=== PATIENT | female | born 1960 | race Caucasian/White ===

== ENCOUNTER 2018-09-09 13:40 | Inpatient (IN) | payer SELFPAY ==
[2018-09-09 14:18] LABS: #Basophils 0.1 thou/uL (0.0-0.2); #Eosinphils 0.2 thou/uL (0.0-0.7); #Monocytes 0.7 thou/uL (0.11-0.59); #Neutrophils 5.7 thou/uL (1.40-6.50); %Basophils 1.2 % (0.0-1.0); %Eosinophils 1.8 % (0.0-10.0); %Monocytes 7.4 % (0.0-10.0); %Neutrophils 58.6 % (42.0-75.0); Hemoglobin 14.8 g/dL (12.0-16.0); Mean Corpuscular HGB CONC 32.6 g/dL (32.0-36.0); Mean Corpuscular Hemoglobin 30.9 pg (27.0-31.0); Mean Corpuscular Volume 94.8 fL (78.0-98.0); Mean Platelet Volume 6.9 fL (7.4-10.4); Platelet Count 297 thou/uL (130-400); RBC Distribution Width 11.5 % (11.5-14.5); White Blood Cell (WBC) Count 9.6 thou/uL (4.8-10.8)
[2018-09-09 14:39] LABS: ALT (SGPT) 7 U/L (8-55); AST (SGOT) 8 U/L (5-34); Albumin 4.1 g/dL (3.5-5.0); Alkaline Phosphatase 155 U/L (40-150); Anion Gap 12 mmol/L (10-20); BUN (Urea Nitrogen) 15 mg/dL (9.8-20.1); Bilirubin, Total 0.3 mg/dL (0.2-1.2); CK (CPK) 49 U/L (29-168); Calc. Creatinine Clearance 0 mL/min (70-130); Calcium 9.5 mg/dL (7.8-10.44); Carbon Dioxide 28 mmol/L (22-29); Chloride 101 mmol/L (98-107); Estimated GFR-MDRD 59; Globulin 3.3 g/dL (2.4-3.5); Glucose 392 mg/dL (70-105); Potassium 4.5 mmol/L (3.5-5.1); Protein, Total 7.4 g/dL (6.0-8.3); Sodium 136 mmol/L (136-145)
[2018-09-09] MEDS ORDERED: Aspirin 81 mg Enteric Coated Tablet ONE (14:54)
[2018-09-09] MEDS ORDERED: Aspirin Chewable 81 MG TAB ONE (14:56)
--- NOTE | 2018-09-09 15:41 | RAD ---
PORTABLE CHEST 1 VIEW: DATE: 09/09/2018. TIME: 2:55 p.m. HISTORY: Left arm weakness, high blood pressure. FINDINGS: The heart size is normal. The aorta is tortuous. The lungs are expanded without lobar consolidation , pneumothoraces, or pleural effusions. There are degenerative changes in the spine. IMPRESSION: No radiographic evidence of acute cardiopulmonary process. POS: TPC
--- NOTE | 2018-09-09 15:52 | CT ---
CT BRAIN WITHOUT CONTRAST: HISTORY: Left arm numbness and tingling. FINDINGS: There are old infarctions in the right frontal and parietal lobes. Old small infarctions in the righ t frontal and parietal lobes. No evidence of acute infarct, hemorrhage, midline shift, or abnormal e xtraaxial fluid collections is seen. The ventricular size is appropriate and the basilar cisterns pa tent. The bony calvarium is intact. The visualized paranasal sinuses and mastoid air cells are well aerated. IMPRESSION: No CT evidence of acute intracranial process. POS: TPC
[2018-09-09] MEDS ORDERED: Insulin Regular 300 UNITS/3 ML VIAL ONE (17:21)
[2018-09-09] MEDS ORDERED: Ondansetron PF 4 MG/2 ML Vial IVP PRN (18:17)
[2018-09-09] MEDS ORDERED: Ondansetron ODT 4 MG TAB SL PRN (18:17)
[2018-09-09 18:28] VITALS: BMI 22.6
[2018-09-10] MEDS ORDERED: Dextrose 5% in Water 1,000 ML IV PRN (00:20)
[2018-09-10] MEDS ORDERED: Dextrose 50% Abboject 50 ML SYRINGE SLOW IVP PRN (00:20)
[2018-09-10] MEDS: HumaLOG 300 UNITS/3 ML VIAL SC PRN ×5 (00:59→20:26)
[2018-09-10 04:41] LABS: Hemoglobin A1c 13.8 % (4.0-6.0)
[2018-09-10 04:59] LABS: Cardiac Risk 5.1 (Less than 4.5)
--- NOTE | 2018-09-10 05:14 | HP ---
TIME OF EVALUATION: 6:30 p.m. CHIEF COMPLAINT: Left upper extremity weakness. HISTORY OF PRESENT ILLNESS: Ms. Fitch is a pleasant 57-year-old female with past medical history significant for diabetes, which has gone untreated since December of 2017, and current tobacco abuse with a one pack per day habit, who presented to the emergency department with complaints of left upper extremity weakness which began about 3 days ago. The patient has noted that the symptoms seemed to be worsening over the past 2 days. She can no longer grasp anything with her left hand. She does say that her daughter at one point might have noticed some slurred speech. She has had no expressive aphasia. Daughter stated that she might have noticed a mild left facial droop. The patient eventually decided to seek medical treatment for these symptoms. In the emergency department, a brain CT was performed, which showed old infarctions in the right frontal and parietal lobes, no evidence of acute infarct, hemorrhage, or midline shift. Her chest x-ray was negative. Her NIH Stroke Scale in the ED was 4, for some limb ataxia of the left hand, mild sensory loss, and mild dysarthria. Her EKG showed normal sinus rhythm. Her labs were largely unremarkable aside from a glucose of 392 and an alkaline phosphatase of 155. She will be admitted to the Hospitalist Service for further imaging and workup. REVIEW OF SYSTEMS: A 12-point review of systems performed and is negative except that stated above. The patient has had no nausea, vomiting, fever, or chills. She has had no chest pain or shortness of breath. No change in her stool. No dysuria. PAST MEDICAL HISTORY: Type 2 diabetes mellitus, tobacco abuse. PAST SURGICAL HISTORY: Hysterectomy, x2, abscess removal. SOCIAL HISTORY: The patient is currently smoking one pack per day. She does drink alcohol on occasion. No illicit drug use. She lives in [place], and her daughters are close by. She moved from [place] in December of 2017 and has had no medical followup or care since that time. FAMILY HISTORY: Significant for diabetes. ALLERGIES: NO KNOWN DRUG ALLERGIES. HOME MEDICATIONS: None. PHYSICAL EXAMINATION: VITAL SIGNS: Blood pressure 128/69, pulse is 88, respirations are 16, O2 saturation is 93% on room air, temperature 98.7. GENERAL: The patient is a small-statured thin female, resting in bed, in no acute distress. HEENT: Head is atraumatic and normocephalic. Mucous membranes are moist. NECK: Trachea is midline. No carotid bruits. CV: S1 and S2. Regular rate and rhythm. No appreciable murmurs, rubs, or gallops. LUNGS: Regular respiratory rate and pattern, mildly decreased vesicular breath sounds throughout. ABDOMEN: Positive bowel sounds. Soft, nontender. EXTREMITIES: No edema. Both lower extremities are warm and well perfused. SKIN: Warm and dry. NEUROLOGIC: Cranial nerves 2 through 12 seemed to be grossly intact aside from a very slight left down turn of the mouth. Her neurologic exam reveals sensory and motor loss, inability to grasp with the left hand, although she has no left arm drift. Both lower extremities show +5/5 strength. LABORATORY DATA: White blood cell count 9.6, hemoglobin 14.8, hematocrit 45.5, platelets are 297. Sodium 136, potassium 4.5, carbon dioxide 28, BUN 15, creatinine 0.96. Troponin negative. ASSESSMENT: 1. Left upper extremity weakness, with inability to grasp with the left hand, onset several days ago, likely secondary to subacute CVA. 2. Uncontrolled/untreated diabetes mellitus type 2. 3. Tobacco abuse, current one pack per day habit. 4. 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 PLAN: The patient did receive aspirin in the ER, we will continue this daily. We will add statin. The patient will have an MRI of the brain along with CT angio of the head and neck. We will also order an echocardiogram. Given the patient's symptoms and risk factors, we will go ahead and consult Neurology for this case. We will use sliding scale insulin to control blood sugar. I will obtain an A1c and a fasting lipid panel in the morning. We will also consult PT and OT. Further recommendations based on findings of testing. We will also add lisinopril. Job ID: [id number]
[2018-09-10] MEDS ORDERED: Aspirin 325 MG TAB PO SCH (09:00)
[2018-09-10] MEDS: Aspirin 81 mg Enteric Coated Tablet PO SCH (09:56)
[2018-09-10] MEDS: Lisinopril 2.5 MG TAB PO SCH (09:56)
[2018-09-10] MEDS: Acetaminophen 325 MG TAB PO PRN ×2 (09:57→23:03)
--- NOTE | 2018-09-10 11:32 | CT ---
CT angiogram of head and neck performed with and without contrast enhancement with 3-D reconstruction s HISTORY: Left arm numbness x4 days COMPARISON: CT of the brain performed yesterday. FINDINGS: CT angiography of neck: The thyroid gland is normal in appearance. The vocal cord region ap pears unremarkable no significant jugular chain adenopathy. The parotid and submandibular gland show no evidence of mass. There are small submandibular nodes which are nonspecific. Parapharyngeal s paces appear clear. Angiographic portion of this study yielded a good examination. There is an aberrant right subclavian artery incidentally noted which passes beneath the esophagus this is an incidental finding. The left common carotid artery has a separate origin from the aortic arch. No signs of any subclavian drew nosis. The right vertebral artery is small with a dominant left vertebral. The right common carotid internal and external carotid arteries are normal in caliber no evidence of any significant stenosis by nascent criteria. The left common carotid internal and external carotid arteries are also normal in appearance without significant stenosis. CT angiogram of brain performed with and without contrast: Some areas of decreased attenuation in the right frontal and parietal regions are again noted these could be subacute to older in nature. MRI may be helpful in assessment of this. The angiographic portion of this exam yielded a good study. The basilar artery is normal in appearanc e. Posterior cerebral arteries appear unremarkable. The cavernous portion of the both internal carotid arteries are normal in appearance. Directly superi or to the cavernous portion of both internal carotid arteries are narrowed with moderate narrowing on the left and mild narrowing on the right. The A1 segment of the right anterior cerebral artery is small, this appears to be more developmental. The anterior middle cerebral arteries are otherwise unremarkable in appearance. No evidence of any areas of significant narrowing or signs of intralumina l thrombus. No additional findings. IMPRESSION: 1. No evidence of any significant stenosis of either the right or left internal carotid arteries by n ascent criteria. 2. Narrowing of both internal carotid arteries just above the cavernous portions with mild narrowing on the right and mild to moderate narrowing of the left. No intraluminal thrombus or other findings. 3. Dominant left vertebral. 4. Aberrant right subclavian. 5. Further evaluation with MRI may be beneficial.
--- NOTE | 2018-09-10 12:18 | MRI ---
EXAM: MRI of the brain without contrast HISTORY: Left-sided weakness; stroke COMPARISON: CT brain 09/09/2018 TECHNIQUE: Multiplanar multisequence MR images were obtained of the brain without IV contrast. FINDINGS: The 2 hypodense regions seen on CT demonstrate high FLAIR signal and restricted diffusion consistent with acute infarctions. The largest area measures 1.9 cm in size. Other smaller tiny white matter areas of restricted diffusion are secondary to other small infarctions. No hydronephrosis. No extra-axial fluid collection or intracranial hemorrhage. The expected flow voids are present. Corpus callosum, pituitary, and craniocervical junction are within normal limits. The calvarium and overlying soft tissues are unremarkable. The paranasal sinuses and mastoid air cells are well aerated. IMPRESSION: Multifocal right subcortical white matter infarctions as above. The multifocality suggests an embolic phenomenon.
--- NOTE | 2018-09-10 12:48 | PDOC.PN ---
- Subjective Encounter Start Date: 09/10/18 Encounter Start Time: 12:00 Subjective: Patient examined, denies new complaints -: Reports she is still unable to use her left arm -: Reports weakness to left arm started in Wednesday - Objective Vital Signs & Weight: Vital Signs (12 hours) Temp Pulse Resp BP Pulse Ox 09/10/18 11:35 97.8 F 83 16 132/78 97 09/10/18 09:56 67 09/10/18 07:53 98.4 F 69 16 125/67 94 L 09/10/18 03:48 98.6 F 66 16 147/75 H 96 Weight Weight 50.848 kg I&O: 09/09/18 09/10/18 09/11/18 06:59 06:59 06:59 Intake Total 480 200 Balance 480 200 Result Diagrams: 09/09/18 14:08 09/09/18 14:08 Additional Labs: Accuchecks 09/10/18 09/10/18 09/09/18 12:21 05:41 20:19 POC Glucose 286 H 164 H 401 H Phys Exam - Physical Examination HEENT: PERRLA Neck: no nodes Respiratory: clear to auscultation bilateral Cardiovascular: RRR Gastrointestinal: soft Weakness to left arm 2/5 strength, sensation intact moves 3 limbs, left arm is weak 2/5, sensation intact Speech is slow Psychiatric: normal affect, A&O x 3 Skin: normal turgor Dx/Plan (1) CVA (cerebral vascular accident) Code(s): I63.9 - CEREBRAL INFARCTION, UNSPECIFIED Status: Acute (2) Weakness of left arm Code(s): R29.898 - [facility] SYMPTOMS AND SIGNS INVOLVING THE MUSCULOSKELETAL SYSTEM Status: Acute (3) Dysarthria Code(s): R47.1 - DYSARTHRIA AND ANARTHRIA Status: Acute (4) Diabetes Code(s): E11.9 - TYPE 2 DIABETES MELLITUS WITHOUT COMPLICATIONS Status: Acute (5) Tobacco abuse Code(s): Z72.0 - TOBACCO USE Status: Chronic Plan: counseling - Plan cont current plan of care, PT/OT MRI shows embolic event likely -: Dr. Grullon is consulted, stroke team eval ordered -: Desires INP rehab - screening ordered -: Will continue to monitor * . Review of Systems - Review of Systems Neurological: Weakness (left arm), Change in Speech - Medications/Allergies Allergies/Adverse Reactions: Allergies Allergy/AdvReac Type Severity Reaction Status Date / Time No Known Allergies Allergy Verified 09/09/18 18:30 Medications: Current Medications Acetaminophen (Tylenol) 650 mg PO Q4H PRN PRN Reason: Headache/Fever or Pain Last Admin: 09/10/18 09:57 Dose: 650 mg Aspirin (Ecotrin) 81 mg PO DAILY [facility] Last Admin: 09/10/18 09:56 Dose: 81 mg Atorvastatin Calcium (Lipitor) 40 mg PO HS [facility] Dextrose/Water (Dextrose 50%) 25 gm SLOW IVP PRN PRN PRN Reason: Hypoglycemia Glucagon (Glucagon) 1 mg IM PRN PRN PRN Reason: Hypoglycemia Dextrose/Water (D5w) 1,000 mls @ 0 mls/hr IV .Q0M PRN PRN Reason: Hypoglycemia Insulin Human Lispro (Humalog) 0 units SC .MODERATE SLIDING SC PRN PRN Reason: Moderate Correctional Scale Last Admin: 09/10/18 12:32 Dose: 6 units Insulin Human Lispro (Humalog) 0 units SC .BEDTIME SLIDING SC PRN PRN Reason: Bedtime Correctional Scale Last Admin: 09/10/18 00:59 Dose: 5 unit Lisinopril (Zestril) 2.5 mg PO DAILY [facility] Last Admin: 09/10/18 09:56 Dose: 2.5 mg Ondansetron HCl (Zofran) 4 mg IVP Q6H PRN PRN Reason: Nausea/Vomiting Ondansetron HCl (Zofran Odt) 4 mg SL Q6H PRN PRN Reason: Nausea/Vomiting Sodium Chloride (Flush - Normal Saline) 10 ml IVF PRN PRN PRN Reason: Saline Flush Last Admin: 09/10/18 09:57 Dose: 10 ml
[2018-09-10] MEDS ORDERED: ISOVUE-370 76%-LOCM 1 ML ONE (13:50)
[2018-09-10] MEDS: Atorvastatin Calcium 40 MG TAB PO SCH (20:25)
--- NOTE | 2018-09-10 21:41 | CON ---
DATE OF TELEMEDICINE CONSULTATION: 09/10/2018 CHIEF COMPLAINT: Weakness in the left arm. HISTORY OF PRESENT ILLNESS: The patient reports she felt like she was having a stroke. She heard a flushing noise in her ears and her left hand got weak. There is no weakness of legs. She found tingling of the fingers and left side of the cheek. She never had a stroke. PAST MEDICAL HISTORY: Positive for diabetes. PAST SURGICAL HISTORY: Positive for hysterectomy, , and abscess removal. SOCIAL HISTORY: She smokes one pack per day. She drinks alcohol on occasion and she moved here from [place]. FAMILY HISTORY: Positive for heart attack in her father who is 74 and in the room. Mother is 76, has COPD. Her cousin has diabetes. HOME MEDICATIONS: None at this time. ALLERGIES: NO KNOWN DRUG ALLERGIES. REVIEW OF SYSTEMS: PULMONARY: Negative for shortness of breath or cough. GI: Negative for nausea, vomiting, or diarrhea. NEUROLOGICAL: Positive for numbness and weakness in the left side. ENDOCRINE: Positive for diabetes. HEMATOLOGIC: Negative for any bleeding diathesis or anemia. DERMATOLOGICAL: Negative for rash. LABORATORY WORKUP: White count 9.6, hemoglobin 14.8, hematocrit 45.5, platelets 297. Sodium 136, potassium 4.5, chloride 101, bicarb 28, BUN 15, creatinine 0.96, glucose 392 and her glucose level has been high throughout this admission. Hemoglobin A1c 13.8. Cholesterol 219, triglycerides 100, LDL 156, HDL was 43, heart disease risk ratio 5.1. Her MRI of the brain showed multifocal right subcortical white matter infarction and this is suggestive of an embolic phenomenon. Her CT [place] angio with contrast showed no evidence of any significant stenosis in the internal carotid arteries, but narrowing of internal carotid arteries about the cavernous portions. No intraluminal thrombus. Dominant left vertebral, aberrant right subclavian. Her echocardiogram is pending. PHYSICAL EXAMINATION: VITAL SIGNS: Her temperature was 98, blood pressure was 109/61, pulse 71, respiratory rate 16, O2 saturation is 95%. GENERAL APPEARANCE: Thin built well-nourished lady, who is sitting up in bed. CHEST: Clear vesicular breathing. CARDIOVASCULAR: S1 and S2 heard. No murmurs. ABDOMEN: Soft. NEUROLOGICAL: Higher intellectual functions; normal orientation to time, place , and person and appropriate conversation. Cranial nerves 2 though 12, normal extraocular movements. No atrophy noted. Pupils 3 mm bilaterally, reactive to light. Tongue midline. Normal elevation of palate. Normal hearing to finger rub bilaterally. Motor examination; bulk normal, tone normal. Strength 5/5 throughout except in the left upper extremity, her left upper proximal was 3/5, distal was 2/5. Muscle groups tested are iliopsoas, hamstrings, quadriceps, ankle dorsiflexion, plantar flexion, deltoid, biceps, triceps, wrist extension and flexion, finger extension and flexion bilaterally and iliopsoas, hamstrings, quadriceps, ankle dorsiflexion, plantar flexion. Deep tendon reflexes were 2+ throughout. Sensation was normal bilaterally. Cerebellar normal [id number] and [id number] bilaterally. Left arm cerebellar exam was slightly limited due to weakness. IMPRESSION: The patient is a 57-year-old lady with multifocal infarcts in the right subcortical white matter area and her carotid artery imaging was negative at this time. She is pending an echocardiogram. If the echo is also negative, we need to potentially consult Cardiology to see if she would benefit from a LEON and further workup for cardioembolic source. RECOMMENDATIONS: 1. At this time, continue complete stroke workup including echocardiogram. 2. Aspirin for stroke prophylaxis along with statin and risk factor control. I will follow up the patient again tomorrow. Job ID: [id number] [facility]
[2018-09-11] MEDS: HumaLOG 300 UNITS/3 ML VIAL SC PRN ×3 (06:34→18:20)
[2018-09-11] MEDS: Lisinopril 2.5 MG TAB PO SCH (08:46)
[2018-09-11] MEDS: Aspirin 81 mg Enteric Coated Tablet PO SCH (08:47)
--- NOTE | 2018-09-11 12:21 | PRG ---
DATE OF SERVICE: 09/11/2018 SUBJECTIVE: A 57-year-old female with diabetes mellitus type 2, hypertension with ongoing tobacco abuse, currently not taking any medications, presented to the emergency room with left arm weakness. Workup was consistent with multifocal right subcortical white matter infarction. Echocardiogram showed ejection fraction 55% to 60% with mild mitral regurgitation, mild tricuspid regurgitation. CT angiogram of the head and neck was negative for hemodynamically significant stenosis. She has been started on aspirin along with statin. At this time, the patient denies any new focal deficit. She continues to have left hand weakness. She denies any double vision, blurring of vision, or facial asymmetry. REVIEW OF SYSTEMS: All other review of systems was reviewed and was found negative. OBJECTIVE: VITAL SIGNS: Temperature 98.2, pulse 79, respirations of 16, blood pressure of 115/62, O2 saturation of 97% on room air. GENERAL: A 57-year-old female, in no apparent distress. LUNGS: Clear to auscultation bilaterally. No wheezing, rales, or rhonchi. HEART: S1 and S2 present. Regular rate and rhythm. No rubs or gallops. ABDOMEN: Soft, nontender. Bowel sounds present. EXTREMITIES: No edema or calf tenderness. NEUROLOGY: No new focal deficit. The patient continues to have weakness in the left upper extremity distal to the wrist. Hand grasp is weak on the left. She has approximately 2/5 to 3/5 in the left hand. Cranial nerves on limited examination were normal. PSYCHIATRY: Normal affect. Alert, awake, and oriented x3. SKIN: Warm and dry. LYMPH NODES: No palpable lymph nodes in the neck. LABORATORY FINDINGS: WBC 9.6, hemoglobin 14.8, and hematocrit 45.5. Hemoglobin A1c of 13.8, triglyceride 100, cholesterol 219, LDL 156, HDL 43. Last Accu-Chek was 164. MRI of the brain by my review as discussed above. Telemetry monitoring by my review showed sinus rhythm. IMPRESSION: 1. Multifocal acute right subcortical cerebrovascular accident, questionable embolic phenomena. 2. Uncontrolled diabetes mellitus type 2. 3. Ongoing tobacco abuse. 4. Hypertension. 5. Chronic kidney disease, stage 3. 6. Dyslipidemia. 7. Medication noncompliance. PLAN: We will change aspirin to 325 mg daily. We will add glipizide. Continue lisinopril. Continue Lipitor. Echocardiogram was negative for intracardiac thrombus. We will discuss with Neurology about further recommendation. Stroke Team followup. The patient was counseled to be compliant with her medications. If her blood sugar stays elevated, we will add insulin. Plan was discussed with the patient in detail. She stated understanding. Job ID: [id number]
--- NOTE | 2018-09-11 12:43 | PRG ---
DATE OF TELEMEDICINE FOLLOW UP SERVICE: 09/11/2018 CHIEF COMPLAINT: Acute stroke. INTERVAL HISTORY: The patient is doing well. She is able to walk and she reports she is still not able to use her left hand, which is where most of her weakness is. At this time, she has completed most of her stroke workup. Current workup results; echocardiogram, transthoracic echo did not reveal any abnormalities other than mild mitral regurgitation and tricuspid regurgitation and CT angiography did not show any vascular vaso-occlusive disease other than narrowing of both internal carotid artery just above the cavernous portion with mild narrowing in the right and [id number] narrowing of the left. No intraluminal thrombus was noted and her MRI of the brain showed embolic stroke in the right subcortical white matter, and this is a multifocal infarct suggestive of embolic phenomena. CURRENT LABORATORY DATA: No further workup is available. PHYSICAL EXAMINATION: VITAL SIGNS: Temperature 98.2, pulse 79, respiratory rate 16, and blood pressure 115/62. GENERAL APPEARANCE: Thin built, well-nourished lady, who is comfortable, walking today from the restroom and higher intellectual functions are normal. NEUROLOGIC: Cranial nerves, normal extraocular movements. No facial asymmetry. Tongue is midline. Motor examination, bulk normal. Tone normal. Strength 5/5 throughout except distal left upper extremity, which is still at 2/5 and in the left upper extremity proximal segment, her strength was 4/5. IMPRESSION: The patient is a 57-year-old lady with embolic stroke based on MRI. At this time, her primary weakness is still in the left hand. Her examination shows both proximal and distal weakness in the left upper extremity proximal being a 4 /5, distal being 2/5. She has had a stroke with embolic events, and her telemetry shows sinus arrhythmia and sinus rate per the nurse. At this time, we are not able to answer the specific question of where the embolic source is. RECOMMENDATIONS: Please consult Cardiology to obtain LEON and a second opinion about possible cardioembolic event here in this younger patient and whether she needs anticoagulation is a question, which can be answered based on the LEON reports. Please call Neurology if you have any further questions. Job ID: [id number] [facility]TD[facility]
[2018-09-11] MEDS: glipiZIDE 5 MG TAB PO SCH (17:22)
[2018-09-11] MEDS: Atorvastatin Calcium 40 MG TAB PO SCH (21:04)
[2018-09-12] MEDS: Sodium Chloride 0.9% 1,000 ML IV SCH ×2 (08:20→18:14)
[2018-09-12] MEDS: Lisinopril 2.5 MG TAB PO SCH (08:24)
[2018-09-12] MEDS: glipiZIDE 5 MG TAB PO SCH ×2 (08:25→16:42)
[2018-09-12] MEDS ORDERED: Aspirin 325 mg Enteric Coated Tablet PO SCH (09:00)
[2018-09-12] MEDS ORDERED: PROPOFOL 20 ML ONE (10:31)
--- NOTE | 2018-09-12 11:28 | OP ---
DATE OF PROCEDURE: 09/12/2018 PROCEDURE PERFORMED: Transesophageal echocardiogram. INDICATION: This is a 57-year-old woman with a CVA. DESCRIPTION OF PROCEDURE: The patient was taken to the PACU. The patient was sedated by Anesthesiology. A transesophageal probe was placed into the distal esophagus and the stomach. Echocardiographic images were obtained. The transesophageal probe was removed. FINDINGS: 1. Normal left ventricular systolic function. 2. Normal mitral and aortic valves. 3. Mild tricuspid regurgitation. 4. Trivial mitral regurgitation. 5. No thrombus in the left atrial or left atrial appendage. 6. No PFO by color Doppler or contrast bubble exam. 7. Atherosclerotic debris in the descending aorta. IMPRESSION: No patent foramen ovale noted by color Doppler or contrast bubble exam. Job ID: [id number]
--- NOTE | 2018-09-12 11:55 | PDOC.PN ---
- Subjective Encounter Start Date: 09/12/18 Encounter Start Time: 11:52 Patient seen and examined for CVA. No new focal deficits. s/p LEON - no intracardiac thrombus. No new complaints. No overnight events - Objective MAR Reviewed: Yes Vital Signs & Weight: Vital Signs (12 hours) Temp Pulse Resp BP BP BP Pulse Ox 09/12/18 11:37 97.8 F 64 18 135/74 97 09/12/18 08:25 97 09/12/18 08:24 66 149/84 H 09/12/18 08:00 97.8 F 66 16 149/84 H 97 09/12/18 03:46 97.5 F L 66 16 134/69 97 09/12/18 00:00 97.9 F 74 18 150/81 H 96 Weight Weight 112 lb 1.6 oz I&O: 09/11/18 09/12/18 09/13/18 06:59 06:59 06:59 Intake Total 880 1230 Balance 880 1230 Result Diagrams: 09/09/18 14:08 09/09/18 14:08 Additional Labs: Accuchecks 09/12/18 09/11/18 09/11/18 06:09 23:49 17:13 POC Glucose 167 H 119 H 291 H Radiology Reviewed by me: Yes (MRI brain - Acute CVA) EKG Reviewed by me: Yes (Tele SR) Phys Exam - Physical Examination Constitutional: NAD Respiratory: no wheezing, no rales, no rhonchi, clear to auscultation bilateral Cardiovascular: RRR, no rub no rubs/gallops Gastrointestinal: soft, non-tender, no distention, positive bowel sounds Musculoskeletal: no edema, pulses present Neurological: non-focal, normal sensation, moves all 4 limbs Psychiatric: normal affect, A&O x 3 Skin: no rash Dx/Plan - Plan plan discussed w/ family, PT/OT, out of bed/ambulate, DVT proph w/lovenox, DVT proph w/SCDs IMPRESSION: 1. Multifocal acute right subcortical CVA ?embolic 2. Diabetes mellitus type 2 - uncontrolled 3. Ongoing tobacco abuse. Counselled 4. Hypertension. 5. Chronic kidney disease, stage 3. 6. Dyslipidemia. 7. Medication noncompliance. PLAN: Cont ASA/Statins Glipizide started Add Metformin Cont Lisinopril LEON - negative Await Cardio input per Neuro recommendations Stroke team Review of Systems - Review of Systems Respiratory: negative: Cough, Dry, Shortness of Breath, Hemoptysis, SOB with Excertion, Pleuritic Pain, Sputum, Wheezing Cardiovascular: negative: chest pain, palpitations, orthopnea, paroxysmal nocturnal dyspnea, edema, light headedness, other - Medications/Allergies Allergies/Adverse Reactions: Allergies Allergy/AdvReac Type Severity Reaction Status Date / Time No Known Allergies Allergy Verified 09/09/18 18:30 Medications: Current Medications Acetaminophen (Tylenol) 650 mg PO Q4H PRN PRN Reason: Headache/Fever or Pain Last Admin: 09/10/18 23:03 Dose: 650 mg Aspirin (Ecotrin) 325 mg PO DAILY [facility] Last Admin: 09/12/18 08:24 Dose: 325 mg Atorvastatin Calcium (Lipitor) 40 mg PO HS [facility] Last Admin: 09/11/18 21:04 Dose: 40 mg Dextrose/Water (Dextrose 50%) 25 gm SLOW IVP PRN PRN PRN Reason: Hypoglycemia Glipizide (Glucotrol) 5 mg PO BID-AC [facility] Last Admin: 09/12/18 08:25 Dose: 5 mg Glucagon (Glucagon) 1 mg IM PRN PRN PRN Reason: Hypoglycemia Dextrose/Water (D5w) 1,000 mls @ 0 mls/hr IV .Q0M PRN PRN Reason: Hypoglycemia Sodium Chloride (Normal Saline 0.9%) 1,000 mls @ 100 mls/hr IV .Q10H [facility] Stop: 09/12/18 16:46 Last Admin: 09/12/18 08:20 Dose: 1,000 mls Insulin Human Lispro (Humalog) 0 units SC .MODERATE SLIDING SC PRN PRN Reason: Moderate Correctional Scale Last Admin: 09/11/18 18:20 Dose: 6 units Insulin Human Lispro (Humalog) 0 units SC .BEDTIME SLIDING SC PRN PRN Reason: Bedtime Correctional Scale Last Admin: 09/10/18 20:26 Dose: 3 unit Lisinopril (Zestril) 2.5 mg PO DAILY [facility] Last Admin: 09/12/18 08:24 Dose: 2.5 mg Ondansetron HCl (Zofran) 4 mg IVP Q6H PRN PRN Reason: Nausea/Vomiting Ondansetron HCl (Zofran Odt) 4 mg SL Q6H PRN PRN Reason: Nausea/Vomiting Sodium Chloride (Flush - Normal Saline) 10 ml IVF PRN PRN PRN Reason: Saline Flush Last Admin: 09/11/18 08:48 Dose: 10 ml
--- NOTE | 2018-09-12 13:35 | CON ---
DATE OF CONSULTATION: 09/12/2018 REASON FOR CONSULTATION: Stroke, thought to be possibly embolic. HISTORY OF PRESENT ILLNESS: Ms. Fitch is a 57-year-old woman. The patient was admitted to the hospital with left hand weakness. She was admitted on 09/10/2018. The patient had evaluation including MRI of the brain showing multifocal right subcortical white matter infarct suggestive of embolic phenomenon. CT of [place] with contrast showed no evidence of any significant stenosis of the internal carotid arteries, but narrowing of the internal carotid arteries about the cavernous portion. The carotid arteries did not have any obstructive disease. Echocardiogram was unremarkable. A possible cardioembolic source on the transesophageal echo. PAST MEDICAL HISTORY: 1. Diabetes. She said for over 10 years. 2. Long history of smoking. 3. She was not previously diagnosed with hypertension with a blood pressure has been mildly elevated here. REVIEW OF SYSTEMS: CONSTITUTIONAL: No significant weight gain or loss. VISION: No changes. HEARING: No changes. PULMONARY: No cough or wheezing. GASTROINTESTINAL: No nausea, vomiting, or diarrhea. SKIN: No rashes. NEUROLOGIC: She has left arm weakness and left hand weakness. No aphasia or dysphasia. FAMILY HISTORY: Father, heart attack in the past. Mother, COPD. SOCIAL HISTORY: Smokes 1 pack per day. PHYSICAL EXAMINATION: GENERAL: This is a pleasant, thin, female, in no distress. VITAL SIGNS: Blood pressure was earlier 149/84, now 135/74, and pulse 64, regular. LUNGS: Clear. CARDIAC: Normal S1, normal S2. ABDOMEN: Soft and nontender. EXTREMITIES: No clubbing or cyanosis. There is no edema. SKIN: Warm and dry. PSYCHIATRIC: Mood and affect normal. NEUROLOGIC: Left hand weakness. PERTINENT LABORATORY DATA: Glucose most recently 167 and creatinine is 0.96. LDL cholesterol is 156. DIAGNOSTIC DATA: EKG has shown sinus rhythm. ASSESSMENT: 1. Stroke, thought to be possibly cardioembolic. 2. No evidence of any intracardiac shunts. 3. Diabetes. 4. Smoking. 5. Hypertension. At this point, it is unclear what caused her stroke, certainly would be concerned that atrial fibrillation could be a cause. We did not have any evidence of this, but it would be appropriate to place a monitor to see if she does have any evidence of atrial fibrillation. If she did, anticoagulation will be indicated. At the present time, anticoagulation is not indicated as we have not yet seen any definitive evidence of fibrillation. Discussed LINQ procedure. Discussed risks including bleeding and infection and requiring removal of the device. I explained that I would do it along with Dr. Murillo today. The patient understands and wished to proceed. Job ID: [id number]
[2018-09-12] MEDS ORDERED: Lidocaine 1% w/Epinephrine 1:100K 20 ML VIAL ONE (13:45)
--- NOTE | 2018-09-12 15:20 | PRG ---
DATE OF SERVICE: 09/12/2018 CANCELLED DICTATION Job ID: [id number]
[2018-09-12] MEDS: HumaLOG 300 UNITS/3 ML VIAL SC PRN (16:42)
[2018-09-12] MEDS ORDERED: metFORMIN 500 MG TAB PO SCH (17:00)
[2018-09-12] MEDS: Atorvastatin Calcium 40 MG TAB PO SCH (20:20)
[2018-09-13 04:13] VITALS: BP 135/64; TEMP 98.2
--- NOTE | 2018-09-13 10:18 | DIS ---
DATE OF ADMISSION: 09/09/2018 DATE OF DISCHARGE: 09/13/2018 DISCHARGE DISPOSITION: Home. FOLLOWUP: 1. Follow up with primary care physician at [facility] in 1 week. 2. Follow up with Cardiology, Dr. Ball in 2 weeks. ALLERGIES: NO KNOWN DRUG ALLERGIES. THE PATIENT WAS SEEN AND EXAMINED ON THE DAY OF DISCHARGE. PLEASE REFER TO MY PROGRESS NOTE FOR DETAILS. DIAGNOSTIC TESTS: 1. CT of the brain on admission was negative for acute CVA. 2. MRI of the brain showed multifocal right subcortical white matter infarctions. 3. CT of the [place] and neck was negative for hemodynamically significant stenosis of carotid arteries. There was narrowing of both the internal carotid artery just above the cavernous portion with mild narrowing on the right and [id number] narrowing on the left. No intraluminal thrombus was noted. 4. Echocardiogram showed left ventricular ejection fraction 55% to 60% with mild mitral regurg, mild tricuspid regurg. INPATIENT PROCEDURES: 1. On 12 September 2018, the patient underwent transesophageal echocardiogram that was negative for intracardiac thrombus or patent foramen ovale. 2. The patient underwent LINQ recorder placement. DISCHARGE MEDICATIONS: 1. Aspirin 325 mg daily. 2. Lipitor 40 mg at bedtime. 3. Glipizide 5 mg b.i.d. 4. Lisinopril 2.5 mg daily. 5. Metformin 500 mg b.i.d. The patient was advised to monitor blood sugars on a daily basis and to maintain a log. She will benefit from a long-acting insulin. She will discuss with the primary care physician. Basic metabolic profile after 1 to 2 weeks is recommended. Primary care physician advised to follow. BRIEF HOSPITAL COURSE: The patient is a 57-year-old female with ongoing tobacco abuse, hypertension, and diabetes mellitus type 2, currently not taking any medications, presented to the hospital with left upper extremity weakness. Her workup was consistent with acute CVA. Due to multifocal right subcortical white matter infarction, there was a concern of embolic event. The patient was seen by Neurology, who recommended transesophageal echocardiogram as well as Cardiology consultation. LEON was negative. A LINQ recorder has been placed per Cardiology recommendation. She will continue aspirin 325 mg for now. Lifestyle modification was emphasized. She has been started on glipizide, metformin with low dose of lisinopril. Her blood pressure on the day of discharge is 135/64. Tobacco cessation was extensively emphasized. Blood sugars on the day of discharge morning was 167 and last night was 119. She was advised to maintain a log. If her blood sugar stays elevated, she will benefit from insulin. She was also counseled by dietitian. FINAL DIAGNOSES: 1. Acute cerebrovascular accident as discussed above. 2. Diabetes mellitus type 2. 3. Tobacco dependence. 4. Hypertension. 5. Chronic kidney disease, stage 3. 6. Dyslipidemia. 7. Medication noncompliance. 8. Right upper extremity weakness secondary to stroke. TIME SPENT WITH PATIENT: Total time coordinating the discharge of this patient was 34 minutes. Job ID: [id number]
== END 2018-09-13 06:45 | disposition home or self-care (01) | DRG 42 ==
LOC: ERS 13:40 → OBSVTOIN 16:44 → 2SE 16:44
PROVIDERS: ADMIT Internal Medicine; ATTEND Internal Medicine
PROC: 0JH632Z Insertion of Monitoring Device into Chest Subcutaneous Tissue and Fascia, Percutaneous Approach (ICD-10-PCS; principal; 2018-09-12)
PROC: B246ZZ4 Ultrasonography of Right and Left Heart, Transesophageal (ICD-10-PCS; 2018-09-12)
DX: I63.9 Cerebral infarction, unspecified (principal); E11.65 Type 2 diabetes mellitus with hyperglycemia; F17.210 Nicotine dependence, cigarettes, uncomplicated; F32.9 Major depressive disorder, single episode, unspecified; R29.704 NIHSS score 4; R47.1 Dysarthria and anarthria; I12.9 Hypertensive chronic kidney disease with stage 1 through stage 4 chronic kidney disease, or unspecified chronic kidney disease; E11.22 Type 2 diabetes mellitus with diabetic chronic kidney disease; N18.3 Chronic kidney disease, stage 3 (moderate); E78.5 Hyperlipidemia, unspecified; G83.24 Monoplegia of upper limb affecting left nondominant side; Z79.4 Long term (current) use of insulin; Z90.710 Acquired absence of both cervix and uterus; Z91.14 Patient's other noncompliance with medication regimen
CPT/HCPCS: 33285; 36415; 36416; 70450; 70496; 70498; 70551; 71045; 80053; 80061; 82550; 83036; 84484; 85025; 93005; 93306; 93312; C1764; J1815; J2001; J2704; Q9966

== ENCOUNTER 2018-10-20 21:47 | Emergency (ER) | payer SELFPAY ==
[2018-10-20 22:45] LABS: #Basophils 0.1 thou/uL (0.0-0.2); #Eosinphils 0.1 thou/uL (0.0-0.7); #Lymphocytes 2.4 thou/uL (1.20-3.40); #Monocytes 0.6 thou/uL (0.11-0.59); #Neutrophils 5.2 thou/uL (1.40-6.50); %Basophils 0.8 % (0.0-1.0); %Eosinophils 1.5 % (0.0-10.0); %Lymphocytes 28.5 % (21.0-51.0); %Monocytes 7.4 % (0.0-10.0); %Neutrophils 61.7 % (42.0-75.0); Mean Corpuscular HGB CONC 34.4 g/dL (32.0-36.0); Mean Corpuscular Hemoglobin 32.5 pg (27.0-31.0); Mean Corpuscular Volume 94.6 fL (78.0-98.0); Mean Platelet Volume 6.9 fL (7.4-10.4); Platelet Count 247 thou/uL (130-400); RBC Distribution Width 11.8 % (11.5-14.5); Red Blood Cell (RBC) Count 4.29 mill/uL (4.20-5.40); White Blood Cell (WBC) Count 8.4 thou/uL (4.8-10.8)
[2018-10-20 23:05] LABS: Acetaminophen Less than 6.0 mcg/mL (10.0-30.0); Alcohol Less than 10 mg/dL (Less than 10); Salicylate Less than 8.0 mg/dL (15.0-30.0)
[2018-10-20 23:06] LABS: ALT (SGPT) 11 U/L (8-55); AST (SGOT) 9 U/L (5-34); Albumin 3.8 g/dL (3.5-5.0); Alkaline Phosphatase 127 U/L (40-150); Anion Gap 14 mmol/L (10-20); BUN (Urea Nitrogen) 13 mg/dL (9.8-20.1); Bilirubin, Total 0.2 mg/dL (0.2-1.2); Calc. Creatinine Clearance 0 mL/min (70-130); Calcium 9.2 mg/dL (7.8-10.44); Carbon Dioxide 26 mmol/L (22-29); Chloride 101 mmol/L (98-107); Estimated GFR-MDRD 57; Globulin 3.2 g/dL (2.4-3.5); Sodium 137 mmol/L (136-145)
[2018-10-20 23:11] LABS: Glucose 554 mg/dL (70-105)
[2018-10-20 23:15] LABS: Bilirubin Negative (Negative); Blood, Urine Negative (Negative); Clarity Clear (Clear); Glucose, Urine (Dipstick) Greater than 1000 mg/dL (Negative); Leukocyte Negative Leu/uL (Negative); Nitrite Negative (Negative); Protein, Urine (Dipstick) Negative (Neg-Trace); Urobilinogen Normal mg/dL (Less than 2)
[2018-10-20 23:17] LABS: Pregnancy Test - Urine (BHCG) Negative (Negative); Pregu Control Background? CLEAR/WHITE (CLR/WHITE); Pregu Control Bar Appear? YES (CONTROL BAR); Specific Gravity 1.038 (1.002-1.036)
[2018-10-20 23:25] LABS: Medtox Reader # READER 1; Methamphetamine Detected (NotDetected)
[2018-10-20 23:26] LABS: Amphetamine Detected (NotDetected); Barbiturates Screen Not Detected (NotDetected); Benzodiazepine Screen Not Detected (NotDetected); Cocaine Metabolite Screen Not Detected (NotDetected); Medtox Control Line Valid? VALID (VALID); Methadone Not Detected (NotDetected); Opiate Screen Not Detected (NotDetected); Oxycodone Screen Not Detected (NotDetected); Phencyclidine (PCP) Not Detected (NotDetected); THC/Cannabinoid Screen Not Detected (NotDetected); Tricyclic Screen Not Detected (NotDetected)
[2018-10-20] MEDS ORDERED: Insulin Regular 300 UNITS/3 ML VIAL ONE (23:40)
[2018-10-21] MEDS ORDERED: Insulin Regular 300 UNITS/3 ML VIAL ONE (00:38)
== END 2018-10-21 03:50 | disposition home or self-care (01) ==
LOC: ERS 21:47
DX: F19.10 Other psychoactive substance abuse, uncomplicated (principal); R44.1 Visual hallucinations; E11.9 Type 2 diabetes mellitus without complications; I10 Essential (primary) hypertension; E78.00 Pure hypercholesterolemia, unspecified; F32.9 Major depressive disorder, single episode, unspecified; F17.210 Nicotine dependence, cigarettes, uncomplicated; Z79.899 Other long term (current) drug therapy; Z79.84 Long term (current) use of oral hypoglycemic drugs; Z79.82 Long term (current) use of aspirin
CPT/HCPCS: 36415; 80053; 80306; 80307; 81003; 81025; 84443; 85025; 96360; 96361; J1815

== ENCOUNTER 2018-11-08 14:02 | Inpatient (IN) | payer SELFPAY ==
[2018-11-08 14:54] LABS: #Basophils 0.1 thou/uL (0.0-0.2); #Eosinphils 0.1 thou/uL (0.0-0.7); #Lymphocytes 2.2 thou/uL (1.20-3.40); #Monocytes 1.1 thou/uL (0.11-0.59); #Neutrophils 6.2 thou/uL (1.40-6.50); %Basophils 0.8 % (0.0-1.0); %Eosinophils 1.5 % (0.0-10.0); %Lymphocytes 22.7 % (21.0-51.0); %Monocytes 10.9 % (0.0-10.0); Hemoglobin 11.9 g/dL (12.0-16.0); Mean Corpuscular HGB CONC 32.9 g/dL (32.0-36.0); Mean Corpuscular Hemoglobin 31.8 pg (27.0-31.0); Mean Corpuscular Volume 96.7 fL (78.0-98.0); Mean Platelet Volume 6.2 fL (7.4-10.4); Platelet Count 329 thou/uL (130-400); Red Blood Cell (RBC) Count 3.75 mill/uL (4.20-5.40); White Blood Cell (WBC) Count 9.7 thou/uL (4.8-10.8)
--- NOTE | 2018-11-08 15:01 | CT ---
CT HEAD WITHOUT IV CONTRAST COMPARISON: 62,019 2018 and 09/10/2018 HISTORY: Left-sided facial droop and slurred speech. Nausea and vomiting. TECHNIQUE: Axial CT imaging at 5 mm intervals from vertex through skull base without contrast FINDINGS: The hypodense areas within the right frontal and right parietal lobes are again seen but decreased in size and were shown to represent acute areas of infarction on prior MRI of brain on 09/10/2018. There are no findings to suggest an acute cortical infarction on today's examination. There is no hem orrhage, mass effect, or midline shift. The ventricular system is normal in size, shape, and position. Visualized paranasal sinuses are clear. Osseous structures appear intact. IMPRESSION: 1. No acute intracranial abnormality demonstrated. 2. Remote areas of infarction in the right cerebral hemisphere.
[2018-11-08 15:14] LABS: ALT (SGPT) 26 U/L (8-55); AST (SGOT) 26 U/L (5-34); Albumin 3.7 g/dL (3.5-5.0); Alkaline Phosphatase 107 U/L (40-150); Anion Gap 11 mmol/L (10-20); BUN (Urea Nitrogen) 16 mg/dL (9.8-20.1); Bilirubin, Total 0.3 mg/dL (0.2-1.2); Calc. Creatinine Clearance 0 mL/min (70-130); Calcium 8.7 mg/dL (7.8-10.44); Carbon Dioxide 28 mmol/L (22-29); Chloride 100 mmol/L (98-107); Estimated GFR-MDRD Greater than 90; Globulin 3.3 g/dL (2.4-3.5); Glucose 87 mg/dL (70-105); Sodium 135 mmol/L (136-145)
[2018-11-08] MEDS ORDERED: Aspirin Chewable 81 MG TAB ONE (16:24)
[2018-11-08] MEDS ORDERED: Ondansetron PF 4 MG/2 ML Vial IVP PRN (18:01)
[2018-11-08] MEDS ORDERED: Guaifenesin DM 100-10/5 ML UDCUP PO PRN (18:01)
[2018-11-08] MEDS ORDERED: Bisacodyl 10 MG SUPP PR PRN (18:01)
[2018-11-08] MEDS ORDERED: HumaLOG 300 UNITS/3 ML VIAL SC PRN (18:01)
[2018-11-08] MEDS ORDERED: Senokot S 8.6-50 MG TAB PO PRN (18:01)
[2018-11-08] MEDS ORDERED: Dextrose 5% in Water 1,000 ML IV PRN (18:01)
[2018-11-08] MEDS ORDERED: Dextrose 50% Abboject 50 ML SYRINGE SLOW IVP PRN (18:01)
[2018-11-08] MEDS: Acetaminophen 325 MG TAB PO PRN (18:47)
[2018-11-08 19:28] VITALS: BMI 23.2
--- NOTE | 2018-11-08 19:37 | RAD ---
EXAM: Single view of the chest HISTORY: Stroke with slurred speech and left facial drooping COMPARISON: None FINDINGS: Single view of the chest shows a normal sized cardiomediastinal silhouette. A cardiac augusto toring device projects over the left chest wall. Atelectasis is seen in the right lung base. There is no evidence of consolidation, mass, or pleural effusion. The bones are unremarkable. IMPRESSION: No evidence of acute cardiopulmonary disease
[2018-11-08] MEDS: Famotidine 20 MG TAB PO SCH (20:54)
[2018-11-08] MEDS: Atorvastatin Calcium 40 MG TAB PO SCH (20:55)
--- NOTE | 2018-11-08 21:06 | HP ---
REASON FOR ADMISSION: Acute CVA with left facial droop and left hemiparesis. HISTORY OF PRESENTING ILLNESS: The patient gives history of having nausea and vomiting from last 2 days. She also developed headache this morning. The headache was on top of her head. The family also noticed more facial droop and slurred speech. Her right eye was not focusing well per family. She has been having difficulty walking from last 2 days. She is not picking her feet up when walking/dragging her feet and also is wobbly. She has significant history of having had ischemic stroke in August of this year, but went to skilled unit after that and was ambulating well. Also, her left upper extremity weakness had gotten better , but this morning she was not able to grasp her left hand with objects. Family also mentioned that she has used meth 2-1/2 weeks back. She has ongoing meth abuse per family. She was very oriented up until 2 days back. Now, she is more lethargic and is a bit confused as well. PAST MEDICAL AND SURGICAL HISTORY: History of CVA in August of this year, methamphetamine abuse, hypertension, diabetes mellitus type 2, dyslipidemia, history of intraabdominal abscess, hysterectomy, x1, LINQ monitor was placed last admission in August, possible history of schizophrenia. CURRENT MEDICATIONS: The patient takes; 1. Lisinopril 2.5 mg daily. 2. Aspirin 81 mg daily. 3. Metformin 500 mg twice daily. 4. Risperdal 1 mg twice daily. 5. Atorvastatin 40 mg p.o. q.p.m. 6. Glipizide 5 mg twice daily. ALLERGIES: NO KNOWN DRUG ALLERGIES. PERSONAL HISTORY: Smokes 1 pack a day. Does not abuse alcohol, but abuses meth and the last known use was 2-1/2 weeks back. She lives alone. FAMILY HISTORY: Mother is living. She has had history of breast cancer and COPD. Father in his 70s from cirrhosis and its complications. CODE STATUS: Full. Power of [place] attorney is her 2 daughters, Ms. Long and Heydi. Number for Mercedes is [phone]. Primary care physician is Tenisha Velasquez,. REVIEW OF SYSTEMS: CONSTITUTIONAL: Negative for weight loss or gain, ability to conduct usual activities. SKIN: Negative for rash, itching. EYES: Negative for double vision, pain. ENT/MOUTH: Negative for nose bleeding, neck stiffness, pain, tenderness. CARDIOVASCULAR: Negative for palpitations, dyspnea on exertion, orthopnea. RESPIRATORY: Negative for shortness of breath, wheezing, cough, hemoptysis, fever or night sweats. GASTROINTESTINAL: Negative for poor appetite, abdominal pain, heartburn, nausea , vomiting, constipation, or diarrhea. GENITOURINARY: Negative for urgency, frequency, dysuria, nocturia. MUSCULOSKELETAL: Negative for pain, swelling. NEUROLOGIC/PSYCHIATRIC: Negative for anxiety, depression. ALLERGY/IMMUNOLOGIC: Negative for skin rash, bleeding tendency. PHYSICAL EXAMINATION: GENERAL: The patient is a 57-year-old female, who is currently not in any acute distress. VITAL SIGNS: Blood pressure 100/86, pulse 66 per minute, respiratory rate 16 per minute, temperature 98.8 degrees Fahrenheit, saturating 95% on room air. NECK: Supple. No elevated JVD. HEENT: Eyes; pupils are reacting to light. The patient appears to have some restriction of left gaze in both eyes. Oral cavity; mucous membranes are dry. No exudates or congestion. The patient has drooping of her face on the left side. CARDIOVASCULAR: S1-S2 heard. Regular rhythm. RESPIRATORY: Air entry 1+ bilateral. Scattered rhonchi plus. No rales or wheezes. ABDOMEN: Soft. Bowel sounds heard. No tenderness, rigidity, or guarding. EXTREMITIES: No peripheral edema or calf tenderness. VASCULAR: Peripheral pulses 1+ bilateral. No ischemic ulcerations or gangrene. CENTRAL NERVOUS SYSTEM: The patient has left hemiparesis with strength of around 3/5 in her lower extremity and around 2 to 3 out of 5 in left upper extremity. She has 7th nerve palpably on the left. She is not fully oriented, has slurred speech, likely aphasia. The patient has left gaze abnormality, likely left hemianopia. PSYCHIATRIC: Cannot be accurately assessed, but no obvious hallucinations or delusions. LABORATORY DATA: The patient had echo done on 09/10/2018, which showed an EF of 55% to 60%. Left atrial size was normal then. The patient also had a transesophageal echo done, which did not reveal any thrombus or patent foramen ovale during her last admission in 09/12/2018. Chest x-ray done shows LINQ monitor in place. No obvious infiltrates. CT brain done shows remote areas of infarct and right frontal and right parietal lobes. No acute infarcts seen on the CAT scan. No bleed. White count of 9, H and H 11 and 36, platelet count 329 with 64% neutrophils. Electrolytes stable. BUN 16, creatinine 0.6. Electrolytes are stable. Albumin is 3.7. EKG done shows normal sinus rhythm at 73 beats per minute, there are signs of mild LVH. CLINICAL IMPRESSION AND PLAN: The patient will be under observation on stroke unit. We will obtain a MRI to confirm acute cerebrovascular accident that's seen clinically. Prior MRI done on 09/10/2018 showed multifocal right subcortical white matter infarcts suggestive of possible embolism. Current CAT scan shows findings of remote infarct in the right frontal and right parietal lobes, but no acute infarct now. We will obtain a repeat echo with 2D Doppler. We will consult Dr. Ball to review LINQ monitor results to see if she has underlying atrial fibrillation. She also has history of chronic methamphetamine abuse, likely contributing to her recurrent cerebrovascular accidents. We will continue her high-dose Lipitor, add Plavix to aspirin, Humalog moderate sliding scale until she is able to swallow well and cleared by Speech. She will be on full liquid diet until then, lisinopril small dose and gentle hydration with normal saline at 70 mL per hour. A urine drug screen will be repeated. We will consult Dr. Albright who is on-call for Neurology as well. If MRI confirms the patient has acute cerebrovascular accident with likely extension of her prior infarcts, she will be switched over to inpatient status. Full stroke protocol will be followed including physical therapy, occupational therapy, and speech evaluations. Job ID: [id number] [facility]
[2018-11-09] MEDS: Sodium Chloride 0.9% 1,000 ML IV SCH ×2 (02:46→20:07)
[2018-11-09 05:43] LABS: #Basophils 0.1 thou/uL (0.0-0.2); #Eosinphils 0.2 thou/uL (0.0-0.7); #Lymphocytes 2.1 thou/uL (1.20-3.40); #Monocytes 1.4 thou/uL (0.11-0.59); #Neutrophils 6.6 thou/uL (1.40-6.50); %Basophils 0.5 % (0.0-1.0); %Eosinophils 1.6 % (0.0-10.0); %Monocytes 13.5 % (0.0-10.0); %Neutrophils 64.3 % (42.0-75.0); Hemoglobin 11.1 g/dL (12.0-16.0); Mean Corpuscular HGB CONC 32.6 g/dL (32.0-36.0); Mean Corpuscular Hemoglobin 31.7 pg (27.0-31.0); Mean Corpuscular Volume 97.2 fL (78.0-98.0); Mean Platelet Volume 6.4 fL (7.4-10.4); Platelet Count 321 thou/uL (130-400); Red Blood Cell (RBC) Count 3.52 mill/uL (4.20-5.40); White Blood Cell (WBC) Count 10.3 thou/uL (4.8-10.8)
[2018-11-09 06:05] LABS: Amphetamine Not Detected (NotDetected); Barbiturates Screen Not Detected (NotDetected); Benzodiazepine Screen Not Detected (NotDetected); Cocaine Metabolite Screen Not Detected (NotDetected); Medtox Control Line Valid? VALID (VALID); Medtox Reader # READER 4; Methadone Not Detected (NotDetected); Methamphetamine Detected (NotDetected); Opiate Screen Not Detected (NotDetected); Oxycodone Screen Not Detected (NotDetected); Phencyclidine (PCP) Not Detected (NotDetected); THC/Cannabinoid Screen Not Detected (NotDetected); Tricyclic Screen Not Detected (NotDetected)
[2018-11-09 06:07] LABS: Anion Gap 11 mmol/L (10-20); BUN (Urea Nitrogen) 16 mg/dL (9.8-20.1); Calc. Creatinine Clearance 70 mL/min (70-130); Calcium 8.2 mg/dL (7.8-10.44); Carbon Dioxide 27 mmol/L (22-29); Cardiac Risk 3.4 (Less than 4.5); Chloride 101 mmol/L (98-107); Cholesterol 100 mg/dl (< 200 Desired); Estimated GFR-MDRD 84; Glucose 195 mg/dL (70-105); HDL Cholesterol 29 mg/dL (>60 Neg Risk); LDL Cholesterol, Calculated 59 mg/dL; Potassium 3.9 mmol/L (3.5-5.1); Sodium 135 mmol/L (136-145); Triglycerides 60 mg/dL (Less than 150)
[2018-11-09] MEDS: Lisinopril 2.5 MG TAB PO SCH (08:47)
[2018-11-09] MEDS: Clopidogrel Bisulfate 75 MG TAB PO SCH (08:48)
[2018-11-09] MEDS: Famotidine 20 MG TAB PO SCH ×2 (08:48→20:45)
[2018-11-09] MEDS: Enoxaparin Sodium 40 MG/0.4 ML SYRINGE SC SCH (08:49)
[2018-11-09] MEDS ORDERED: Aspirin 81 mg Enteric Coated Tablet PO SCH (09:00)
[2018-11-09] MEDS ORDERED: Lorazepam 2 MG/ML VIAL SLOW IVP PRN (10:36)
--- NOTE | 2018-11-09 11:31 | PDOC.HOSPP ---
- Subjective Encounter Date: 11/09/18 Encounter Time: 09:00 Subjective: more awake and follows verbal stimuli is able to better communicate and less dysarthria this am still weak in left UE > than left LE - Objective Vital Signs & Weight: Vital Signs (12 hours) Temp Pulse Resp BP BP BP Pulse Ox 11/09/18 08:47 61 123/76 11/09/18 08:00 97.4 F L 123 H 16 91/62 76 L 11/09/18 03:25 98.3 F 62 16 113/69 96 11/08/18 23:56 97.5 F L 63 16 104/59 L 91 L Weight Weight 114 lb 14.4 oz I&O: 11/08/18 11/09/18 11/10/18 06:59 06:59 06:59 Intake Total 352 Output Total 150 Balance 202 Result Diagrams: 11/09/18 05:05 11/09/18 05:05 Additional Labs: Accuchecks 11/09/18 11/09/18 11/08/18 10:51 06:16 19:49 POC Glucose 222 H 173 H 130 H Hospitalist ROS - Medication Medications: Active Medications Generic Name Dose Route Start Last Admin Trade Name Freq PRN Reason Stop Dose Admin Acetaminophen 650 mg 11/08/18 18:01 11/08/18 18:47 Tylenol PO 650 mg Q4H PRN Administration Headache/Fever/Mild Pain (1-3) Aspirin 81 mg 11/09/18 09:00 11/09/18 08:47 Ecotrin PO 81 mg DAILY KRUPA Administration Atorvastatin Calcium 80 mg 11/08/18 21:00 11/08/18 20:55 Lipitor PO 80 mg HS K[facility]PA Administration Clopidogrel Bisulfate 75 mg 11/09/18 09:00 11/09/18 08:48 Plavix PO 75 mg DAILY [facility] Administration Enoxaparin Sodium 40 mg 11/09/18 09:00 11/09/18 08:49 Lovenox SC 40 mg 0900 KRUPA Administration Famotidine 20 mg 11/08/18 21:00 11/09/18 08:48 Pepcid PO 20 mg BID [facility] Administration Sodium Chloride 1,000 mls @ 70 mls/hr 11/08/18 18:01 11/09/18 02:46 Normal Saline 0.9% IV 1,000 mls .[id number] KRUPA Administration Lisinopril 2.5 mg 11/09/18 09:00 11/09/18 08:47 Zestril PO 2.5 mg DAILY [facility] Administration - Exam General Appearance: NAD, awake alert Eye: PERRL, anicteric sclera ENT: normocephalic atraumatic, no oropharyngeal lesions Neck: supple, no JVD Heart: RRR, no murmur Respiratory: no wheezes, no rales Gastrointestinal: soft, non-tender, normal bowel sounds Extremities: no cyanosis, no edema Neurological - other findings: left hemiparesis, dysarthria, 7th nr palsy Musculoskeletal: normal tone, no muscle wasting Psychiatric: normal affect, A&O x 3 Hosp A/P (1) Acute CVA (cerebrovascular accident) Code(s): I63.9 - CEREBRAL INFARCTION, UNSPECIFIED Status: Acute (2) DM type 2 (diabetes mellitus, type 2) Status: Chronic Qualifiers: Diabetes mellitus vermin exterminator insulin use: without fdc use (3) Substance abuse Code(s): F19.10 - OTHER PSYCHOACTIVE SUBSTANCE ABUSE, UNCOMPLICATED Status: Chronic (4) HTN (hypertension) Code(s): I10 - ESSENTIAL (PRIMARY) HYPERTENSION Status: Chronic Qualifiers: Hypertension type: essential hypertension Qualified Code(s): I10 - Essential (primary) hypertension (5) Dyslipidemia Code(s): E78.5 - HYPERLIPIDEMIA, UNSPECIFIED Status: Chronic (6) Dysarthria Code(s): R47.1 - DYSARTHRIA AND ANARTHRIA Status: Acute (7) Tobacco abuse Code(s): Z72.0 - TOBACCO USE Status: Chronic - Plan her LINQ monitor report will be obtained this am, D/w await MRI results and neuro consult PT/OT to mobilize as tolerated speech has cleared her for eating she is more oriented and is communicating better today continue asp, plavix, high dose lipitor and lisinopril humalog sliding scale and glipizide May switch to inpatient status if MRI confirms acute cva
--- NOTE | 2018-11-09 12:53 | MRI ---
BRAIN MRI NONCONTRAST: 11/09/18 COMPARISON: 09/10/18 MRI. CLINICAL INDICATION: Stroke. FINDINGS: There is multifocal restricted diffusion of the right cerebral hemisphere predominantly in a watershe d distribution consistent with acute infarction either relating to hyperperfusion or embolic phenomen on. There are a few faint susceptibility foci of the cerebral hemisphere which do localize to sites o f cytotoxic edema indicative of mild hemorrhagic transformation. No associated mass effect of signifi cance, or evidence of midline shift. Ventricular system is normal in size. There is superimposed post erior right parietal encephalomalacia. IMPRESSION: Acute multifocal watershed distribution infarction of right cerebral hemisphere with mild hemorrhagic transformation evident. Therefore, as a conservative measure, a short term follow-up head CT, noncon trast is warranted to exclude progression of hemorrhage. POS: DONALD
[2018-11-09] MEDS: glipiZIDE 5 MG TAB PO SCH (16:42)
[2018-11-09] MEDS: Atorvastatin Calcium 40 MG TAB PO SCH (20:45)
[2018-11-10] MEDS: glipiZIDE 5 MG TAB PO SCH ×2 (10:30→16:51)
[2018-11-10] MEDS: Enoxaparin Sodium 40 MG/0.4 ML SYRINGE SC SCH (10:31)
[2018-11-10] MEDS: Famotidine 20 MG TAB PO SCH (10:31)
[2018-11-10] MEDS: Clopidogrel Bisulfate 75 MG TAB PO SCH (10:31)
[2018-11-10] MEDS: Lisinopril 2.5 MG TAB PO SCH (10:41)
[2018-11-10 15:48] VITALS: TEMP 98.2
[2018-11-10 15:55] VITALS: BP 172/86
[2018-11-10] MEDS: Acetaminophen 325 MG TAB PO PRN (16:58)
--- NOTE | 2018-11-10 23:48 | CON ---
DATE OF CONSULTATION: 11/10/2018 CONSULTING PHYSICIAN: Hospitalist Service. IMPRESSION: 1. Right watershed infarct secondary to methamphetamine use. 2. Diabetes. PLAN: 1. Low-dose statin. 2. Plavix 75 mg per day. HISTORY OF PRESENT ILLNESS: Ms. Fitch is a 57-year-old woman who came in at her daughter's provocation because she thought that she had a left facial droop. She did not really notice that she had any slurred speech or lateralized weakness or numbness. Her symptoms cleared off fairly quickly. Her initial CT was unremarkable. A followup MRI showed patchy area of ischemia in the watershed distribution on the right. There is no history of any syncopal episode. Her blood pressure was 140/70 since she has been in. Tox screen was positive for methamphetamine. Her echocardiogram showed a normal ejection fraction of 60% to 65%. Cholesterol ratio was 3.4. PAST MEDICAL HISTORY: Diabetes. ALLERGIES: NONE REPORTED. SOCIAL HISTORY: Positive for tobacco and drug use. FAMILY HISTORY: Noncontributory. REVIEW OF SYSTEMS: Ten-system review of systems is otherwise negative. PHYSICAL EXAMINATION: VITAL SIGNS: Have been stable. She is afebrile. HEENT: Pupils are equal. Conjunctivae are clear. Oropharynx is clear, poor dentition. NECK: Supple. No lymphadenopathy. EXTREMITIES: No cyanosis or edema. NEUROLOGIC: She is alert and cooperative. Her speech is fluent and clear. Cranial nerves are intact throughout. Motor exam shows equal application support administrator strength. She has no tremor or dysmetria. She can walk independently. IMAGING: EKG shows a sinus rhythm. SUMMARY: Middle-aged woman who has had some illicit drug use which likely led to her ischemic event. She has been counseled in regard to changing her habits. She is amenable to treatment. I will be happy to follow up with her. Job ID: [id number]
--- NOTE | 2018-11-11 14:05 | DIS ---
DATE OF ADMISSION: 11/08/2018 DATE OF DISCHARGE: 11/10/2018 DISCHARGE DISPOSITION: Home. PRIMARY DISCHARGE DIAGNOSIS: Acute multifocal watershed infarct in the right cerebral hemisphere with mild hemorrhagic transformation. 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 PROCEDURES DONE DURING HOSPITALIZATION: MRI brain showed acute multifocal watershed infarcts in the right cerebral hemisphere with mild hemorrhagic transformation. There was an old right parietal encephalomalacia due to old CVA. Echo with 2D Doppler showed EF of 60% to 65% with structurally normal mitral and aortic valves. CT brain done on the day of admission showed no acute intracranial abnormality. There were remote infarcts in the right cerebral hemisphere. Chest x-ray done showed no acute cardiopulmonary abnormalities. LINQ monitor interrogation showed no evidence of atrial fibrillation. Hemoglobin and hematocrit 11 and 34, platelet count 321, MCV 97. Total cholesterol 100, triglyceride 60, LDL 59, BUN 16, creatinine 0.7. Urine tox screen was positive for methamphetamines. DISCHARGE MEDICATIONS: 1. Atorvastatin 80 mg p.o. at bedtime. 2. Plavix 75 mg p.o. daily. 3. Glipizide 5 mg p.o. twice daily. 4. Lisinopril 2.5 mg daily. 5. Metformin 500 mg twice daily. ALLERGIES: NO KNOWN DRUG ALLERGIES. INPATIENT CONSULT: 1. Dr. Albright for Neurology. 2. Dr. Ball for Cardiology. DISCHARGE PLAN: The patient to follow up with her primary care physician, Tenisha Velasquez in 1 week BRIEF COURSE DURING HOSPITALIZATION: The patient initially was brought to emergency room with complaints of facial droop, difficulty speaking, and left upper extremity weakness. She has had prior history of CVA with left hemiparesis in the past just two months back. She has had complete workup done in August of this year including transthoracic and transesophageal echoes, which did not reveal any thrombus. Her telemetry had not revealed any arrhythmias then. She had a LINQ monitor placed then. This was interrogated this time and has not revealed any atrial fibrillation or arrhythmias. She has had complete stroke workup done, which showed a new watershed infarcts in the right cerebral hemisphere, likely due to chronic methamphetamine abuse. Her dysarthria and left-sided hemiparesis are slowly improving. She was counseled with regard to substance use and tobacco use. Prior to discharge, she is tolerating oral solid diet and is ambulating. She has been cleared by Dr. Albright for discharge. Please note, I have seen and examined the patient on the day of discharge. Job ID: [id number] MTDD
--- NOTE | 2018-11-12 13:29 | EKG ---
Test Reason : SLURRED SPEECH Blood Pressure : / mmHG Vent. Rate : 073 BPM Atrial Rate : 073 BPM P-R Int : 162 ms QRS Dur : 100 ms QT Int : 426 ms P-R-T Axes : 022 -30 028 degrees QTc Int : 469 ms Normal sinus rhythm Left axis deviation Minimal voltage criteria for LVH, may be normal variant Abnormal ECG Confirmed by FACUNDO SOLER, JOSÉ ([id number]), clinical editor LUCIAN BRICE ([id number]) on 11/12/2018 1:28:58 PM Referred By: Confirmed By:JOSÉ LOREDO MD
== END 2018-11-10 18:29 | disposition home health service (06) | DRG 64 ==
LOC: ERS 14:02 → OBSVTOIN 16:48 → 2SE 16:48
PROVIDERS: ADMIT Internal Medicine; ATTEND Internal Medicine
DX: I63.9 Cerebral infarction, unspecified (principal); I61.9 Nontraumatic intracerebral hemorrhage, unspecified; G81.94 Hemiplegia, unspecified affecting left nondominant side; R29.810 Facial weakness; R47.81 Slurred speech; I10 Essential (primary) hypertension; E78.00 Pure hypercholesterolemia, unspecified; E11.9 Type 2 diabetes mellitus without complications; E78.5 Hyperlipidemia, unspecified; F20.9 Schizophrenia, unspecified; R47.1 Dysarthria and anarthria; F32.9 Major depressive disorder, single episode, unspecified; F17.210 Nicotine dependence, cigarettes, uncomplicated; F15.10 Other stimulant abuse, uncomplicated; Z90.710 Acquired absence of both cervix and uterus
CPT/HCPCS: 36415; 36416; 70450; 70551; 71045; 80048; 80053; 80061; 80306; 84484; 85025; 93005; 93306; J1650; J2060

== ENCOUNTER 2019-11-26 11:24 | Inpatient (IN) | payer OTHER, SELFPAY ==
[2019-11-26 11:49] LABS: #Basophils 0.1 thou/uL (0.0-0.2); #Eosinphils 0.1 thou/uL (0.0-0.7); #Lymphocytes 2.4 thou/uL (1.20-3.40); #Monocytes 0.7 thou/uL (0.11-0.59); #Neutrophils 5.4 thou/uL (1.40-6.50); %Basophils 1.2 % (0.0-1.0); %Eosinophils 1.3 % (0.0-10.0); %Lymphocytes 27.3 % (21.0-51.0); %Monocytes 8.4 % (0.0-10.0); %Neutrophils 61.8 % (42.0-75.0); Hemoglobin 15.7 g/dL (12.0-16.0); Mean Corpuscular HGB CONC 34.6 g/dL (32.0-36.0); Mean Corpuscular Hemoglobin 32.8 pg (27.0-31.0); Mean Corpuscular Volume 94.8 fL (78.0-98.0); Mean Platelet Volume 7.3 fL (7.4-10.4); Platelet Count 239 thou/uL (130-400); RBC Distribution Width 11.6 % (11.5-14.5); White Blood Cell (WBC) Count 8.8 thou/uL (4.8-10.8)
[2019-11-26 11:59] LABS: INR-International Normal Ratio 0.9; PTT 26.6 sec (22.9-36.1); Prothrombin Time 12.8 sec (12.0-14.7)
[2019-11-26 12:14] LABS: ALT (SGPT) Less than 7 U/L (8-55); AST (SGOT) 7 U/L (5-34); Alkaline Phosphatase 128 U/L (40-110); Anion Gap 15 mmol/L (10-20); BUN (Urea Nitrogen) 12 mg/dL (9.8-20.1); Bilirubin, Total 0.3 mg/dL (0.2-1.2); Calc. Creatinine Clearance 0 mL/min (70-130); Carbon Dioxide 24 mmol/L (22-29); Chloride 104 mmol/L (98-107); Estimated GFR-MDRD 81; Globulin 2.9 g/dL (2.4-3.5); Glucose 272 mg/dL (70-105); Potassium 4.5 mmol/L (3.5-5.1); Protein, Total 6.9 g/dL (6.0-8.3); Sodium 138 mmol/L (136-145)
--- NOTE | 2019-11-26 12:22 | CT ---
CT OF BRAIN PERFORMED WITHOUT CONTRAST ENHANCEMENT: HISTORY: Left-sided weakness, severe aphasia. COMPARISON: MRI examination 11/09/2018, CT study of 11/08/2018. FINDINGS: There is mild ventricular and sulcal prominence. There is encephalomalacia change involving the righ t frontoparietal region and right occipital region consistent with areas of previously noted infarct. Changes have progressed as compared to the prior examination. I am not certain what part of this i s just purely encephalomalacia change or possibly extension of infarct. I would be more concerned wi th the changes in the right frontal white matter in parasylvian location is having more of an acute e lement. No intra- or extraaxial hemorrhage. Mastoid air cells and visualized sinuses are clear othe r than some minimal mucosal change in the sphenoid. IMPRESSION: Old infarcts in the right frontoparietal and right occipital region. I think the majority of this is encephalomalacia change, but there could be some acute to subacute element present. MRI would be he lpful in further assessment. No hemorrhage. Findings were telephoned to Dr. Montalvo at 1140 hours. CODE CR POS: OFF
--- NOTE | 2019-11-26 13:08 | CT ---
CT ANGIO OF HEAD AND NECK PERFORMED WITH INTRAVENOUS CONTRAST ENHANCEMENT WITH 3D RECONSTRUCTIONS: HISTORY: Left-sided weakness, severe aphasia. COMPARISON: A 09/10/2018 exam. FINDINGS: The lung apices are clear. Thyroid gland region appears unremarkable. No significant jugular chain adenopathy. Vocal cord region is normal. Parapharyngeal spaces are clear. There is technically a good examination obtained. There is a separate origin of the left common cuello tid artery from the aortic arch. Once again, an aberrant right subclavian artery is incidentally see n. The left vertebral artery is dominant. Only minimal contribution to the basilar artery from the right side. The right common carotid artery is normal in caliber. The right internal and external carotid arteri es show no significant narrowing at their origin; however, approximately 2 cm beyond its origin, the right internal carotid artery becomes very diminutive in size and is almost thread-like in the cavern ous portion of the internal carotid artery. On the left side, left internal and external and common carotid arteries show no significant stenosis by NASCET criteria. CT ANGIO OF HEAD PERFORMED WITH CONTRAST: The narrowing of the right internal carotid artery extends into the cavernous and supraclinoid portio n of the internal carotid artery. The vessel is overall diminutive in size . There are no surroundin g soft tissue changes as would be typically seen with a dissection. I think this is still a possibil ity. The A1 and M1 segments are somewhat small. There is no clot demonstrated. Peripheral branches of the right side are well opacified. The left anterior and middle cerebral arteries and their branches appear unremarkable. The basilar artery and posterior cerebral arteries are patent. IMPRESSION: 1. Aberrant right subclavian artery. 2. Dominant left vertebral. 3. Pronounced narrowing of the right internal carotid artery approximately 2 cm beyond its origin. This narrowing extends to the level of the cavernous portion of the internal carotid artery. It is d ifficult to appreciate the narrowing to the supraclinoid portion of the right internal carotid artery that was seen on the previous exam due to the diminutive size. The cause of this is uncertain. Typ ically with a dissection, you can see surrounding soft tissue change, but I do not see any of this. I think that the possibility of dissection would still be a possibility. Some unusual manifestation of spasm would be a consideration. 4. Mild stenosis of the supraclinoid portion of the left internal carotid artery is similar to the 2 019 study. 5. Findings reviewed with Dr. Flores and Dr. Allen. Findings telephoned to Dr. Montalvo at 1225 hours. CODE CR POS: OFF
[2019-11-26 13:12] LABS: Bilirubin Negative (Negative); Blood, Urine Negative (Negative); Clarity Clear (Clear); Glucose, Urine (Dipstick) Greater than 1000 mg/dL (Negative); Ketone, Urine Negative (Negative); Leukocyte Negative Leu/uL (Negative); Mucous/LPF Rare LPF (<2+); Nitrite 2+ (Negative); Protein, Urine (Dipstick) Negative (Neg-Trace); RBC/HPF 0-3 HPF (0-3); Specific Gravity, Urine 1.047 (1.002-1.036); Squamous Epithelial 0-3 HPF (0-3); Urobilinogen Normal mg/dL (Less than 2); pH, Urine 6.5 (5.0-9.0)
--- NOTE | 2019-11-26 13:18 | PDOC.HHP ---
Hospitalist HPI - History of Present Illness Left-sided weakness History of Present Illness: Ms. Fitch is a 58F with a PMHx of T2DM, HTN, HLD, prior CVAs with residual left- sided weakness who presents with acute CVA. Pt air-lifted from OSH for acute stroke. Patient's family reports that her cleaning lady found her at home this morning unable to speak and with left sided facial droop. Last seen well was ni ght prior. Patient has history of CVAs with two in the past year, which family reports were secondary to methamphetamine use. Patient's daughter reports that she is still using and also is a daily smoker of tobacco cigarettes. In ED, initial vital signs 150/83, 65, 18, 97% on RA. CT brain showed R frontoparietal, R occipital old infarcts, negative for hemorrhage. Initial troponin 0.01, EKG showed NSR with no ischemic changes, Na 138, K 4.5, BUN/Cr 12/0.73, glucose 273. H/H15.7/45.5, WBC 8.8. PT/INR 12.8/0.9. PTT 26.6. Patient is unfortunately not a candidate for TPA since she is outside the window. CT angio of head/neck showed no obvious thrombus. Dr. Vargas of neurosurgery reviewed scan and was unable to offer intervention. CT angio did show a tortuous course of the R carotid with question of compression on my review, final read pending. Hospitalist ROS - Review of Systems ROS unobtainable: due to mental status - Medication Medications: Home medications include: 1. Pravastatin 40 mg 2. Plavix 75 mg 3. Glipizide 5 mg 4. Lisinopril 2.5 mg 5. Metfromin 500 mg BID 6. ASA 81 mg NKDA Hospitalist History - Past Medical History Cardiac: reports: HTN, Hyperlipidemia Pulmonary: reports: hypertension MANAGER OF APPLICATION DEVELOPMENT: reports: CVA Psych: reports: Addictions Endocrine: reports: Diabetes - Past Surgical History Other Surgical History: Hysterectomy, , implantable monitoring tech (now removed) - Family History Other Family History: Family history of breast cancer and COPD in her mother - Social History Smoking Status: Current every day smoker Tobacco Type: cigarettes Alcohol: reports: Occassional Drugs: reports: methamphetamine Living Situation: Alone Activity level: independent ambulation - Exam General Appearance: ill appearing Eye: PERRL, anicteric sclera ENT: normocephalic atraumatic, no oropharyngeal lesions Neck: supple, symmetric, no JVD, no thyromegaly, no lymphadenopathy, no carotid bruit Heart: RRR, no murmur, no gallops, no rubs, normal peripheral pulses Respiratory: CTAB, no wheezes, no rales, no ronchi, normal chest expansion, no tachypnea, normal percussion Gastrointestinal: soft, non-tender, non-distended, normal bowel sounds, no palpable masses, no hepatomegaly, no splenomegaly, no bruit Extremities: no cyanosis, no clubbing, no edema Skin: normal turgor, no lesions, no rashes Neurological: hemiplegia, speech deficit Neurological - other findings: expressive aphasia, able to follow commands, left lateral gaze Musculoskeletal - other findings: 4/5 strength to LUE, LLE, pronator drift Psychiatric: not oriented Hospitalist Results - Labs Result Diagrams: 11/26/19 11:29 11/26/19 11:29 Lab results: WBC 8.8 thou/uL (4.8-10.8) 11/26/19 11:29 Hgb 15.7 g/dL (12.0-16.0) 11/26/19 11:29 Hct 45.5 % (36.0-47.0) 11/26/19 11:29 MCV 94.8 fL (78.0-98.0) 11/26/19 11:29 Plt Count 239 thou/uL (130-400) 11/26/19 11: Neutrophils % 61.8 % (42.0-75.0) 11/26/19 11:29 Sodium 138 mmol/L (136-145) 11/26/19 11:29 Potassium 4.5 mmol/L (3.5-5.1) 11/26/19 11:29 Chloride 104 mmol/L (98-107) 11/26/19 11:29 Carbon Dioxide 24 mmol/L (22-29) 11/26/19 11:29 BUN 12 mg/dL (9.8-20.1) 11/26/19 11:29 Creatinine 0.73 mg/dL (0.6-1.1) 11/26/19 11:29 Glucose 272 mg/dL (70-105) H 11/26/19 11:29 Calcium 9.0 mg/dL (7.8-10.44) 11/26/19 11:29 Total Bilirubin 0.3 mg/dL (0.2-1.2) 11/26/19 11:29 AST 7 U/L (5-34) 11/26/19 11:29 ALT Less than 7 U/L (8-55) L 11/26/19 11:29 Alkaline Phosphatase 128 U/L (40-110) H 11/26/19 11:29 Troponin I Less than 0.010 ng/mL (< 0.028) 11/26/19 11:29 Serum Total Protein 6.9 g/dL (6.0-8.3) 11/26/19 11:29 Albumin 4.0 g/dL (3.5-5.0) 11/26/19 11:29 Hospitalist H&P A/P - Problem (1) Acute CVA (cerebrovascular accident) Code(s): I63.9 - CEREBRAL INFARCTION, UNSPECIFIED Status: Acute (2) Diabetes Code(s): E11.9 - TYPE 2 DIABETES MELLITUS WITHOUT COMPLICATIONS Status: Acute (3) Dyslipidemia Code(s): E78.5 - HYPERLIPIDEMIA, UNSPECIFIED Status: Chronic (4) HTN (hypertension) Code(s): I10 - ESSENTIAL (PRIMARY) HYPERTENSION Status: Chronic Qualifiers: Hypertension type: essential hypertension Qualified Code(s): I10 - Essential (primary) hypertension (5) Substance abuse Code(s): F19.10 - OTHER PSYCHOACTIVE SUBSTANCE ABUSE, UNCOMPLICATED Status: Chronic (6) Tobacco abuse Code(s): Z72.0 - TOBACCO USE Status: Chronic - Plan Plan: Acute CVA: 58F with hx of prior CVAs 2/2 methamphetamine abuse. This is her third stroke this year. Pt has had full workup including prior echocardiography, telemetry, and implantable monitoring tech which have all been negative. Pt air-lifted from OSH for symptoms of expressive aphasia, L facial droop, and L sided weakness which were found upon waking this morning. CT brain showed old R frontoparietal and old R occipital infarcts, negative for hemorrhage. Pt not a candidate for TPA since she is out of the window. CTA with no obvious thrombus, but question of tortuous R carotid artery, final read pending. NIH scale 13Will continue patient on ASA, plavix, and statin. PLAN: -ASA 325mg, plavix, statin -MRI brain, carotid US -NPO pending SPL, PT/OT -Q4 neuro checks -Telemetry -Permissive HTN -Neurology consult Type 2 DM: Hx of T2DM, on home glipizide, metformin. Will hold in setting of acute stroke. Glucose 272 on admission. PLAN: -Check HgA1c -Low ISS -Carb consistent diet once cleared by speech -ACHS glucose checks Hyperlipidemia: On home pravastatin 40 mg, will switch to high-intensity statin, atorvastatin 40 mg. Will check lipid panel. Hypertension: On home lisinopril. Will hold, permissive HTN in setting of CVA. Methamphetamine abuse: Hx of methamphetamine abuse which is suspected to have caused pt's two prior CVAs this year. Daughter reports that she suspects pt is still using. Pt lives by herself and also smokes cigarettes daily. PLAN: -Utox -Offer addiction counseling DVT prophylaxis: lovenox FULL CODE: POA patient's daughter Polo Case discussed with attending physician, Dr. King.
[2019-11-26 13:21] LABS: Bacteria/HPF 4+ HPF (None Seen)
[2019-11-26] MEDS ORDERED: cefTRIAXone\\ROCEPHIN 1 GM VIAL ONE (13:48)
[2019-11-26] MEDS ORDERED: Aspirin Chewable 81 MG TAB ONE (13:48)
[2019-11-26] MEDS ORDERED: Iopamidol-370 76% 500 ML 1 ML ONE (13:59)
[2019-11-26] MEDS ORDERED: Enoxaparin Sodium 40 MG/0.4 ML SYRINGE SC SCH (14:00)
[2019-11-26] MEDS ORDERED: Labetalol HCl 100 MG/20 ML VIAL SLOW IVP PRN (14:00)
[2019-11-26 15:50] VITALS: BMI 19.0
[2019-11-26 16:14] LABS: Amphetamine Not Detected (NotDetected); Barbiturates Screen Not Detected (NotDetected); Benzodiazepine Screen Not Detected (NotDetected); Cocaine Metabolite Screen Not Detected (NotDetected); Medtox Control Line Valid? VALID (VALID); Medtox Reader # READER 1; Methadone Not Detected (NotDetected); Methamphetamine Not Detected (NotDetected); Opiate Screen Not Detected (NotDetected); Oxycodone Screen Not Detected (NotDetected); Phencyclidine (PCP) Not Detected (NotDetected); THC/Cannabinoid Screen Not Detected (NotDetected); Tricyclic Screen Not Detected (NotDetected)
[2019-11-26 16:31] LABS: Syphilis Antibody Nonreactive (Nonreactive); Syphilis Antibody Index 0.06 S/CO (<1.00 Non-Reactive)
--- NOTE | 2019-11-26 18:22 | MRI ---
MRI BRAIN WITHOUT CONTRAST: Indications: Stroke Comparison: MRI brain 11-09-18. That exam revealed areas of acute infarct in the right cerebral hemisp here. FINDINGS: On today's exam there are encephalomalacia changes and gliosis at sites or prior infarct including ri ght frontal, occipital and parietal lobes. There are ischemic white matter changes seen in the left cerebral hemisphere today which are more ext ensive and there is now new FLAIR signal lobe in the left frontal lobe cortex with evidence of sulcal effacement. Review of the fusion weighted sequence shows evidence of acute infarct in this left frontal lobe jo ex today. There is also scattered foci of acute infarct in the deep left white matter. There is a foc al area of acute infarct in the left basal ganglia in the region of the lentiform nucleus, probably g lobus pallidus. There are also two or three tiny focus of acute infarct in left parietal lobe cortex. There are also foci of acute infarct in the right parietal lobe cortex in the region of the prior rig ht parietal infarct. These have watershed distribution appearance with multifocal bilateral infarcts. IMPRESSION: 1. There are multifocal bilateral acute infarcts. These are more extensive and numerous in the left c erebral hemisphere today with new infarcts seen in the left frontal lobe, left deep white matter, lef t parietal lobe and left basal ganglia as described above. 2. There are also areas of acute cortical infarct in the right parietal lobe cortex today at site of previous parietal infarct. POS: [place]
[2019-11-26] MEDS: Atorvastatin Calcium 40 MG TAB PO SCH (23:00)
[2019-11-27] MEDS ORDERED: HumaLOG 300 UNITS/3 ML VIAL SC PRN (01:18)
[2019-11-27] MEDS: HumaLOG 300 UNITS/3 ML VIAL SC PRN ×3 (01:44→23:40)
[2019-11-27 07:21] LABS: Cardiac Risk 6.1 (Less than 4.5)
[2019-11-27] MEDS ORDERED: Aspirin 300 MG Suppository PR SCH (09:00)
[2019-11-27] MEDS ORDERED: Aspirin 81 mg Enteric Coated Tablet PO SCH (09:00)
[2019-11-27] MEDS: Clopidogrel Bisulfate 75 MG TAB PO SCH (09:01)
[2019-11-27] MEDS: Aspirin 325 MG TAB PO SCH (09:19)
--- NOTE | 2019-11-27 12:00 | CON ---
NEUROLOGY CONSULTATION DATE OF CONSULTATION: 11/27/2019 REASON FOR CONSULTATION: Left-sided weakness, rule out stroke. HISTORY OF PRESENT ILLNESS: Ms. Cristy Fitch is a 58-year-old female with medical history significant for type 2 diabetes mellitus, hypertension, hyperlipidemia, prior stroke with residual left-sided weakness, presented with worsening left- sided weakness and speech deficit. She was airlifted from outside hospital for acute stroke. Per family, her cleaning lady found her at the home. She was unable to speak and she has facial droop. She was last seen normal the night before. She does have history of prior strokes 2 times since the past year and the last one was in October 2019 when she was admitted to our facility and workup was done and it was thought it was secondary to methamphetamine abuse. In the emergency room, her blood pressure was 151/83. Head CT showed right frontoparietal, right occipital old infarcts, which was negative for hemorrhage. EKG showed normal sinus rhythm. She was out of the window for tPA. CT angiogram of the head and neck did not reveal any hemodynamically significant stenosis or thrombus. Dr. Vargas was contacted and he determined she is not a candidate for any surgical intervention. REVIEW OF SYSTEMS: Unobtainable due to the patient's mental status, she is extremely somnolent at this time. HOME MEDICATIONS: 1. Pravastatin 40 mg daily. 2. Plavix 75 mg daily. 3. Glipizide 5 mg daily. 4. Lisinopril 2.5 mg daily. 5. Metformin 500 mg b.i.d. 6. Aspirin 81 mg daily. ALLERGIES: NO KNOWN DRUG ALLERGIES. PAST MEDICAL HISTORY: Hypertension, hyperlipidemia, CVA x2, methamphetamine abuse, and diabetes. PAST SURGICAL HISTORY: section, hysterectomy, implantable property assessment monitor. FAMILY HISTORY: Significant for breast cancer and COPD. SOCIAL HISTORY: The patient lives alone. She does have residual left-sided weakness from the prior stroke. She smokes cigarettes every day and uses methamphetamine occasionally. PHYSICAL EXAMINATION: 185/85 89 18 General Appearance: ill appearing Eye: PERRL, anicteric sclera ENT: normocephalic atraumatic, no oropharyngeal lesions Neck: supple, symmetric, no JVD, no thyromegaly, no lymphadenopathy, no carotid bruit Heart: RRR, no murmur, no gallops, no rubs, normal peripheral pulses Respiratory: CTAB, no wheezes, no rales, no ronchi, normal chest expansion, no tachypnea, normal percussion Gastrointestinal: soft, non-tender, non-distended, normal bowel sounds, no palpable masses, no hepatomegaly, no splenomegaly, no bruit Extremities: no cyanosis, no clubbing, no edema Skin: normal turgor, no lesions, no rashes Neurological: Mental status; the patient is alert and oriented to person and place. She is extremely somnolent. She follows commands intermittently. She does have expressive aphasia. Cranial nerves; pupils 4 mm, round and reactive to light. Face, left facial droop. Cough, positive. Corneals, positive. Moves neck in both directions. Hearing seems to be intact. Motor; muscle tone and bulk are normal. Left hemiparesis. She did not cooperate with strength testing. Cerebellar, unable to assess secondary to the patient's somnolence. Gait deferred due to the patient's safety reason. DIAGNOSTIC STUDIES: Data reviewed. I reviewed the MRI of the brain, which was consistent with acute infarction. CT of the head showed old strokes and old CVAs. CTA of the head and neck was essentially unremarkable. 11/26/19 11:29 Lab results: WBC 8.8 thou/uL (4.8-10.8) 11/26/19 11:29 Hgb 15.7 g/dL (12.0-16.0) 11/26/19 11:29 Hct 45.5 % (36.0-47.0) 11/26/19 11:29 MCV 94.8 fL (78.0-98.0) 11/26/19 11:29 Plt Count 239 thou/uL (130-400) 11/26/19 11:29 Neutrophils % 61.8 % (42.0-75.0) 11/26/19 11:29 Sodium 138 mmol/L (136-145) 11/26/19 11:29 Potassium 4.5 mmol/L (3.5-5.1) 11/26/19 11:29 Chloride 104 mmol/L (98-107) 11/26/19 11:29 Carbon Dioxide 24 mmol/L (22-29) 11/26/19 11:29 BUN 12 mg/dL (9.8-20.1) 11/26/19 11:29 Creatinine 0.73 mg/dL (0.6-1.1) 11/26/19 11:29 Glucose 272 mg/dL (70-105) H 11/26/19 11:29 Calcium 9.0 mg/dL (7.8-10.44) 11/26/19 11:29 Total Bilirubin 0.3 mg/dL (0.2-1.2) 11/26/19 11:29 AST 7 U/L (5-34) 11/26/19 11:29 ALT Less than 7 U/L (8-55) L 11/26/19 11:29 Alkaline Phosphatase 128 U/L (40-110) H 11/26/19 11:29 Troponin I Less than 0.010 ng/mL (< 0.028) 11/26/19 11:29 Serum Total Protein 6.9 g/dL (6.0-8.3) 11/26/19 11:29 Albumin 4.0 g/dL (3.5-5.0) 11/26/19 11:29 ASSESSMENT AND PLAN: (1) Acute CVA (cerebrovascular accident) Code(s): I63.9 - CEREBRAL INFARCTION, UNSPECIFIED Status: Acute (2) Diabetes Code(s): E11.9 - TYPE 2 DIABETES MELLITUS WITHOUT COMPLICATIONS Status: Acute (3) Dyslipidemia Code(s): E78.5 - HYPERLIPIDEMIA, UNSPECIFIED Status: Chronic (4) HTN (hypertension) Code(s): I10 - ESSENTIAL (PRIMARY) HYPERTENSION Status: Chronic Qualifiers: Hypertension type: essential hypertension Qualified Code(s): I10 - Essential (primary) hypertension (5) Substance abuse Code(s): F19.10 - OTHER PSYCHOACTIVE SUBSTANCE ABUSE, UNCOMPLICATED Status: Chronic (6) Tobacco abuse Code(s): Z72.0 - TOBACCO USE Status: Chronic Ms. Cristy Fitch is a 58-year-old female with history of methamphetamine abuse, hypertension, prior 2 strokes since the last year, presented with acute onset left-sided weakness with expressive aphasia and confusion. MRI of the brain reviewed, which was positive for multifocal bilateral acute infarction in the left cerebral hemisphere with new infarct seen in the left frontal lobe, left deep white matter, left parietal lobe, and left basal ganglia. There are also areas of acute cortical infarction in the right parietal cortex. CTA of the head showed aberrant right subclavian artery and dominant left vertebral artery. CTA of the neck reviewed and results noted. Continue aspirin, Plavix, and high-intensity statin for secondary stroke prevention. Ensure compliance with daughter before switching to aggrenox. 2D echocardiogram from 11/10/2019 reviewed, which was essentially unremarkable with no evidence of stroke or PFO. The patient also has a LINQ recorder, so consider Cardiology input. Telemetry to rule out arrhythmias. EEG to evaluate for cortical irritability because of persistent confusion. Neuro checks every 4 hours. Continue home medications. Permissive control of blood pressure at this time. Strict control of blood glucose. PT/OT/speech. Continue medical management per primary team. DVT prophylaxis. We will continue to follow. Thank you for the consult. Job ID: [id number] NBA
[2019-11-27 14:02] LABS: SARS-CoV-2 MS2 Positive; SARS-CoV-2 N Gene Negative; SARS-CoV-2 S Gene Negative; SARS-CoV-2 by NAA Not Detected (NotDetected); SARS-CoV-2 orf1ab Negative
[2019-11-27] MEDS ORDERED: Dextrose 5% in Water 1,000 ML IV PRN (14:45)
[2019-11-27] MEDS ORDERED: Dextrose 50% Abboject 50 ML SYRINGE SLOW IVP PRN (14:45)
--- NOTE | 2019-11-27 14:45 | PDOC.HOSPP ---
- Subjective Encounter Date: 11/27/19 Encounter Time: 08:00 Subjective: Patient seen for follow-up regarding acute cerebrovascular accident. Patient is lethargic, could not complete review of systems. - Objective Vital Signs & Weight: Vital Signs (12 hours) Temp Pulse Resp BP Pulse Ox 11/27/19 11:58 98.2 F 60 23 H 181/85 H 94 L 11/27/19 08:00 98.3 F 58 L 12 128/78 96 11/27/19 04:00 97.9 F 65 16 172/84 H 98 Weight Admit Weight 107 lb 4.8 oz Weight 107 lb 4.8 oz I&O: 11/26/19 11/27/19 11/28/19 06:59 06:59 06:59 Intake Total 300 Output Total 200 Balance 100 Result Diagrams: 11/26/19 11:29 11/26/19 11:29 Additional Labs: Accuchecks 11/27/19 11/27/19 11/27/19 11:17 11:08 05:32 POC Glucose 337 H 354 H 171 H 11/26/19 11/26/19 20:57 16:35 POC Glucose 338 H 206 H I reviewed patient's labs and MAR EKG Reviewed by me: Yes (Telemetry: Normal sinus rhythm) Hospitalist ROS - Review of Systems ROS unobtainable: due to mental status - Medication Medications: Active Medications Generic Name Dose Route Start Last Admin Trade Name Freq PRN Reason Stop Dose Admin Aspirin 325 mg 11/27/19 09:00 11/27/19 09:19 Aspirin 325 Mg Tab PO 325 mg DAILY KRUPA Administration Atorvastatin Calcium 40 mg 11/26/19 21:00 11/26/19 23:00 Atorvastatin Calcium 40 Mg Tab PO 40 mg HS KRUPA Administration Clopidogrel Bisulfate 75 mg 11/27/19 09:00 11/27/19 09:01 Clopidogrel Bisulfate 75 Mg Tab PO 75 mg DAILY KRUPA Administration Insulin Human Lispro 0 units 11/27/19 01:18 11/27/19 12:04 Humalog 300 Units/3 Ml Vial SC 6 unit .MILD SLIDING SCALE PRN Administration Mild Correctional Scale Insulin Human Lispro 0 units 11/27/19 01:18 11/27/19 01:44 Humalog 300 Units/3 Ml Vial SC 4 unit .BEDTIME SLIDING SC PRN Administration Bedtime Correctional Scale - Exam Eye: anicteric sclera ENT: normocephalic atraumatic Neck: supple, no thyromegaly Heart: RRR Respiratory: CTAB Gastrointestinal: soft, non-tender Skin: no rashes Psychiatric: lethargic Hosp A/P (1) Acute CVA (cerebrovascular accident) Code(s): I63.9 - CEREBRAL INFARCTION, UNSPECIFIED Status: Acute (2) DM type 2 (diabetes mellitus, type 2) Status: Chronic Qualifiers: Diabetes mellitus chcf insulin use: without chcf use (3) Dyslipidemia Code(s): E78.5 - HYPERLIPIDEMIA, UNSPECIFIED Status: Chronic (4) HTN (hypertension) Code(s): I10 - ESSENTIAL (PRIMARY) HYPERTENSION Status: Chronic Qualifiers: Hypertension type: essential hypertension Qualified Code(s): I10 - Essential (primary) hypertension (5) Substance abuse Code(s): F19.10 - OTHER PSYCHOACTIVE SUBSTANCE ABUSE, UNCOMPLICATED Status: Chronic (6) Tobacco abuse Code(s): Z72.0 - TOBACCO USE Status: Chronic - Plan Continue aspirin, Plavix and Lipitor. Neurology service consulted. Patient will likely need LEON. Blood sugars are high, switch to moderate insulin sliding scale and add Lantus 5 units every morning. Permissive hypertension. Patient will be counseled regarding tobacco and recreational drug cessation when she is more alert.
[2019-11-27] MEDS: Atorvastatin Calcium 40 MG TAB PO SCH (23:40)
[2019-11-28] MEDS: HumaLOG 300 UNITS/3 ML VIAL SC PRN ×3 (06:13→21:05)
[2019-11-28] MEDS ORDERED: Insulin Glargine 5 UNITS in Pre-Filled Syringe 1 EACH SC SCH ×2 (09:00→14:00)
[2019-11-28] MEDS: Aspirin 325 MG TAB PO SCH (09:54)
[2019-11-28] MEDS: Clopidogrel Bisulfate 75 MG TAB PO SCH (09:54)
[2019-11-28] MEDS ORDERED: PROPOFOL 20 ML ONE (12:04)
--- NOTE | 2019-11-28 12:40 | PDOC.NEUPN ---
- Subjective Encounter Date: 11/28/19 Subjective: Patient continues to be somnolent but wakes up easily and is oriented to person only. EEG did not reveal any seizure activity. MRI brain was consistent with acute infarction - Objective Vital Signs & Weight: Vital Signs (12 hours) Temp Pulse Resp BP Pulse Ox 11/28/19 11:48 97.5 F L 56 L 16 153/84 H 95 11/28/19 07:37 98.1 F 58 L 16 173/84 H 96 11/28/19 04:34 97.4 F L 58 L 14 184/86 H 94 L 11/28/19 00:55 97.6 F 64 15 189/84 H 97 Weight Admit Weight 107 lb 4.8 oz Weight 107 lb 4.8 oz I&O: 11/27/19 11/28/19 11/29/19 06:59 06:59 06:59 Intake Total 300 775 Output Total 200 Balance 100 775 Result Diagrams: 11/26/19 11:29 11/26/19 11:29 Additional Labs: Accuchecks 11/28/19 11/28/19 11/27/19 11:05 06:05 22:10 POC Glucose 250 H 204 H 249 H 11/27/19 11/27/19 11/27/19 16:24 11:17 11:08 POC Glucose 173 H 337 H 354 H Radiology Reviewed by me: Yes EKG Reviewed by me: Yes ROS - Review of Systems ROS unobtainable: due to mental status - Medication Medications: Active Medications Generic Name Dose Route Start Last Admin Trade Name Freq PRN Reason Stop Dose Admin Aspirin 325 mg 11/27/19 09:00 11/28/19 09:54 Aspirin 325 Mg Tab PO 325 mg DAILY KRUPA Administration Atorvastatin Calcium 40 mg 11/26/19 21:00 11/27/19 23:40 Atorvastatin Calcium 40 Mg Tab PO 40 mg HS KRUPA Administration Clopidogrel Bisulfate 75 mg 11/27/19 09:00 11/28/19 09:54 Clopidogrel Bisulfate 75 Mg Tab PO 75 mg DAILY KRUPA Administration Insulin Glargine 5 units/ 0.05 mls @ 0 mls/hr 11/28/19 09:00 11/28/19 09:54 Miscellaneous Medication SC 0.05 mls QAM KRUPA Administration Insulin Human Lispro 0 units 11/27/19 01:18 11/28/19 11:35 Humalog 300 Units/3 Ml Vial SC 4 unit .BEDTIME SLIDING SC PRN Administration Bedtime Correctional Scale Insulin Human Lispro 0 units 11/27/19 14:45 11/28/19 06:13 Humalog 300 Units/3 Ml Vial SC 4 unit .MODERATE SLIDING SC PRN Administration Moderate Correctional Scale - Exam General Appearance: NAD Eye: PERRL ENT: normocephalic atraumatic Neck: supple Respiratory: CTAB Cardiovascular: RRR Gastrointestinal: soft Extremities: no cyanosis Skin: normal turgor Neurological: no new deficit PSYCH: oriented to person, somnolent Results - Labs Result Diagrams: 11/26/19 11:29 11/26/19 11:29 Lab results: WBC 8.8 thou/uL (4.8-10.8) 11/26/19 11:29 Hgb 15.7 g/dL (12.0-16.0) 11/26/19 11:29 Hct 45.5 % (36.0-47.0) 11/26/19 11:29 MCV 94.8 fL (78.0-98.0) 11/26/19 11:29 Plt Count 239 thou/uL (130-400) 11/26/19 11:29 Neutrophils % 61.8 % (42.0-75.0) 11/26/19 11:29 ESR Westergren 32 mm/hr (Less than 30) 11/26/19 11:29 Sodium 138 mmol/L (136-145) 11/26/19 11:29 Potassium 4.5 mmol/L (3.5-5.1) 11/26/19 11:29 Chloride 104 mmol/L (98-107) 11/26/19 11:29 Carbon Dioxide 24 mmol/L (22-29) 11/26/19 11:29 BUN 12 mg/dL (9.8-20.1) 11/26/19 11:29 Creatinine 0.73 mg/dL (0.6-1.1) 11/26/19 11:29 Glucose 272 mg/dL (70-105) H 11/26/19 11:29 Calcium 9.0 mg/dL (7.8-10.44) 11/26/19 11:29 Total Bilirubin 0.3 mg/dL (0.2-1.2) 11/26/19 11:29 AST 7 U/L (5-34) 11/26/19 11:29 ALT Less than 7 U/L (8-55) L 11/26/19 11:29 Alkaline Phosphatase 128 U/L (40-110) H 11/26/19 11:29 Troponin I Less than 0.010 ng/mL (< 0.028) 11/26/19 11:29 Serum Total Protein 6.9 g/dL (6.0-8.3) 11/26/19 11:29 Albumin 4.0 g/dL (3.5-5.0) 11/26/19 11:29 Urine Ketones Negative mg/dL (Negative) 11/26/19 12:45 Urine Blood Negative (Negative) 11/26/19 12:45 Urine Nitrite 2+ (Negative) A 11/26/19 12:45 Ur Leukocyte Esterase Negative Chilo/uL (Negative) 11/26/19 12:45 Urine RBC 0-3 HPF (0-3) 11/26/19 12:45 Urine WBC 4-6 HPF (0-3) A 11/26/19 12:45 Ur Squamous Epith Cells 0-3 HPF (0-3) 11/26/19 12:45 Urine Bacteria 4+ HPF (None Seen) A 11/26/19 12:45 - Radiology Interpretation MRI - head Status: image reviewed by me, report reviewed by me Additional Comment: MRI brain consistent with multiple acute infarction bilaterally. There were more extensive infarcts on the left as compared to the right PN A/P - Plan Daily Plan: PT/OT, speech therapy, DVT proph w/lovenox, DVT proph w/SCDs 58-year-old female with history significant for substance abuse, and 2 prior strokes since the last 1 year presented with worsening neurological deficits. MRI of the brain reviewed and was consistent with triple acute infarctions in both left and right cerebral hemispheres. Concern about cardioembolic phenomena. Consider LEON to rule out cardioembolic source. Telemetry to rule out arrhythmias. Neurochecks every 4 hours. EEG reviewed for confusion which was negative for seizure activity. Continue aspirin, Plavix and high intensity statin for secondary stroke prevention. Continue home medications. PT/OT/speech. Continue medical management per primary team. Plan discussed during the MDR rounds.
--- NOTE | 2019-11-28 13:26 | PDOC.HOSPP ---
- Subjective Encounter Date: 11/28/19 Encounter Time: 08:45 Subjective: Patient seen for follow-up regarding acute ischemic CVA. Patient is lethargic, not answering questions. Could not complete review of systems. - Objective Vital Signs & Weight: Vital Signs (12 hours) Temp Pulse Pulse Pulse Resp BP BP 11/28/19 11:48 97.5 F L 56 L 16 11/28/19 10:02 57 L 58 L 171/81 H 154/81 H 11/28/19 07:37 98.1 F 58 L 16 11/28/19 04:34 97.4 F L 58 L 14 BP Pulse Ox 11/28/19 11:48 153/84 H 95 11/28/19 10:02 11/28/19 07:37 173/84 H 96 11/28/19 04:34 184/86 H 94 L Weight Admit Weight 107 lb 4.8 oz Weight 107 lb 4.8 oz I&O: 11/27/19 11/28/19 11/29/19 06:59 06:59 06:59 Intake Total 300 775 Output Total 200 Balance 100 775 Result Diagrams: 11/26/19 11:29 11/26/19 11:29 Additional Labs: Accuchecks 11/28/19 11/28/19 11/27/19 11:05 06:05 22:10 POC Glucose 250 H 204 H 249 H 11/27/19 11/27/19 11/27/19 16:24 11:17 11:08 POC Glucose 173 H 337 H 354 H I reviewed patient's labs and MAR EKG Reviewed by me: Yes (Telemetry: Normal sinus rhythm) Hospitalist ROS - Review of Systems ROS unobtainable: due to mental status - Medication Medications: Active Medications Generic Name Dose Route Start Last Admin Trade Name Freq PRN Reason Stop Dose Admin Aspirin 325 mg 11/27/19 09:00 11/28/19 09:54 Aspirin 325 Mg Tab PO 325 mg DAILY KRUPA Administration Atorvastatin Calcium 40 mg 11/26/19 21:00 11/27/19 23:40 Atorvastatin Calcium 40 Mg Tab PO 40 mg HS KRUPA Administration Clopidogrel Bisulfate 75 mg 11/27/19 09:00 11/28/19 09:54 Clopidogrel Bisulfate 75 Mg Tab PO 75 mg DAILY KRUPA Administration Insulin Glargine 5 units/ 0.05 mls @ 0 mls/hr 11/28/19 09:00 11/28/19 09:54 Miscellaneous Medication SC 0.05 mls QAM KRUPA Administration Insulin Human Lispro 0 units 11/27/19 01:18 11/28/19 11:35 Humalog 300 Units/3 Ml Vial SC 4 unit .BEDTIME SLIDING SC PRN Administration Bedtime Correctional Scale Insulin Human Lispro 0 units 11/27/19 14:45 11/28/19 06:13 Humalog 300 Units/3 Ml Vial SC 4 unit .MODERATE SLIDING SC PRN Administration Moderate Correctional Scale - Exam General Appearance: ill appearing Eye: anicteric sclera Heart: RRR Respiratory: CTAB Gastrointestinal: soft Skin: no rashes Neurological - other findings: Unable to assess Psychiatric - other findings: Unable to assess Hosp A/P (1) Acute CVA (cerebrovascular accident) Code(s): I63.9 - CEREBRAL INFARCTION, UNSPECIFIED Status: Acute (2) DM type 2 (diabetes mellitus, type 2) Status: Chronic Qualifiers: Diabetes mellitus 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 Continue aspirin, Plavix and Lipitor. Increase Lantus to 10 units daily. Permissive hypertension. Patient will be counseled regarding tobacco and recreational drug cessation when she is more alert.
[2019-11-28] MEDS: Acetaminophen 650 MG/20.3 ML UDCUP PO PRN (17:22)
[2019-11-28] MEDS: Atorvastatin Calcium 40 MG TAB PO SCH (20:58)
--- NOTE | 2019-11-29 05:40 | OP ---
DATE OF PROCEDURE: 11/28/2019 PROCEDURE PERFORMED: Transesophageal echocardiogram. DESCRIPTION OF PROCEDURE: This is a 58-year-old woman with a CVA. The patient was taken to the PACU. The patient was sedated by Anesthesiology. A transesophageal probe was placed into the distal esophagus and stomach. Echocardiographic images were obtained. Three contrast bubble exams were performed. The transesophageal probe was removed. FINDINGS: 1. Normal left ventricular systolic function. 2. Normal mitral and aortic valves. 3. Mild tricuspid regurgitation. 4. No thrombus noted in the left atrium or left atrial appendage. 5. No PFO was noted by color Doppler or contrast bubble exam. 6. Atherosclerotic debris in the descending aorta. IMPRESSION: No PFO by color Doppler or contrast bubble exam. Job ID: [id number]
[2019-11-29] MEDS: Clopidogrel Bisulfate 75 MG TAB PO SCH (08:19)
[2019-11-29] MEDS: Aspirin 325 MG TAB PO SCH (08:19)
--- NOTE | 2019-11-29 08:29 | EEG ---
DATE OF SERVICE: 11/27/2019 ATTENDING PHYSICIAN: Tamica Zambrano MD. This EEG was performed using 24-channel Squla video digital EEG machine with 24-disk electrodes. This was an extended 2 hours 6 minutes of inpatient video EEG recording. Digital analysis of the EEG was done for spike and seizure detection, which revealed no abnormalities. BACKGROUND: There is a nonsustained posterior background rhythm of 7 to 8 Hz, minimal reactivity seen with eye opening and closure. HYPERVENTILATION: Not performed. PHOTIC STIMULATION: No significant response seen with photic stimulation. SLEEP: Drowsiness and sleep are observed. EEG DIAGNOSES: 1. Intermittent irregular theta activity seen during the recording. 2. Nonsustained slow posterior background rhythm. CLINICAL INTERPRETATION: This EEG is consistent with [id number] generalized nonspecific cerebral dysfunction. Job ID: [id number]
[2019-11-29] MEDS: Insulin Glargine 10 UNITS in Pre-Filled Syringe 1 EACH SC SCH (09:45)
[2019-11-29] MEDS: HumaLOG 300 UNITS/3 ML VIAL SC PRN ×2 (11:50→22:03)
--- NOTE | 2019-11-29 13:45 | PDOC.NEUPN ---
- Subjective Encounter Date: 11/29/19 Subjective: Patient feels better today. She is oriented to person and place. Daughter at bedside. - Objective Vital Signs & Weight: Vital Signs (12 hours) Temp Pulse Resp BP BP Pulse Ox 11/29/19 11:05 98.1 F 58 L 20 168/81 H 97 11/29/19 08:56 144/86 H 11/29/19 08:16 96 11/29/19 07:16 97.5 F L 61 16 157/81 H 96 11/29/19 04:24 97.5 F L 56 L 18 130/80 97 Weight Admit Weight 107 lb 4.8 oz Weight 107 lb 4.8 oz I&O: 11/28/19 11/29/19 11/30/19 06:59 06:59 06:59 Intake Total 775 Balance 775 Result Diagrams: 11/26/19 11:29 11/26/19 11:29 Additional Labs: Accuchecks 11/29/19 11/29/19 11/28/19 11:11 05:57 21:04 POC Glucose 254 H 139 H 300 H 11/28/19 16:10 POC Glucose 87 Radiology Reviewed by me: Yes EKG Reviewed by me: Yes ROS - Review of Systems Constitutional: denies: fever, chills, sweats, weakness, malaise, other Eyes: denies: pain, vision change, conjunctivae inflammation, eyelid inflammation, redness, other ENT: denies: ear pain, ear discharge, nose pain, nose discharge, nose congestion, mouth pain, mouth swelling, throat pain, throat swelling, other All Systems: All other systems reviewed; all pertinent +/- noted in HPI/Subj - Medication Medications: Active Medications Generic Name Dose Route Start Last Admin Trade Name Freq PRN Reason Stop Dose Admin Acetaminophen 650 mg 11/28/19 17:10 11/28/19 17:22 Acetaminophen 650 Mg/20.3 Ml Udcup PO 650 mg Q6H PRN Administration Pain Aspirin 325 mg 11/27/19 09:00 11/29/19 08:19 Aspirin 325 Mg Tab PO 325 mg DAILY KRUPA Administration Atorvastatin Calcium 40 mg 11/26/19 21:00 11/28/19 20:58 Atorvastatin Calcium 40 Mg Tab PO 40 mg HS KRUPA Administration Clopidogrel Bisulfate 75 mg 11/27/19 09:00 11/29/19 08:19 Clopidogrel Bisulfate 75 Mg Tab PO 75 mg DAILY KRUPA Administration Insulin Glargine 10 units/ 0.1 mls @ 0 mls/hr 11/29/19 09:00 11/29/19 09:45 Miscellaneous Medication SC 0.1 mls QAM KRUPA Administration Insulin Human Lispro 0 units 11/27/19 01:18 11/28/19 21:05 Humalog 300 Units/3 Ml Vial SC 3 unit .BEDTIME SLIDING SC PRN Administration Bedtime Correctional Scale Insulin Human Lispro 0 units 11/27/19 14:45 11/29/19 11:50 Humalog 300 Units/3 Ml Vial SC 6 unit .MODERATE SLIDING SC PRN Administration Moderate Correctional Scale Sodium Chloride 10 ml 11/26/19 14:00 11/28/19 20:58 Flush - Normal Saline 10 Ml Syringe IVF 10 ml PRN PRN Administration Saline Flush - Exam General Appearance: awake alert Eye: PERRL ENT: normocephalic atraumatic Neck: supple Respiratory: CTAB Cardiovascular: RRR Gastrointestinal: soft Extremities: no cyanosis Skin: normal turgor Neurological: no new deficit Musculoskeletal: normal tone, no muscle wasting PSYCH: oriented to person, oriented to place Results - Labs Result Diagrams: 11/26/19 11:29 11/26/19 11:29 Lab results: WBC 8.8 thou/uL (4.8-10.8) 11/26/19 11:29 Hgb 15.7 g/dL (12.0-16.0) 11/26/19 11:29 Hct 45.5 % (36.0-47.0) 11/26/19 11:29 MCV 94.8 fL (78.0-98.0) 11/26/19 11:29 Plt Count 239 thou/uL (130-400) 11/26/19 11:29 Neutrophils % 61.8 % (42.0-75.0) 11/26/19 11:29 ESR Westergren 32 mm/hr (Less than 30) 11/26/19 11:29 Sodium 138 mmol/L (136-145) 11/26/19 11:29 Potassium 4.5 mmol/L (3.5-5.1) 11/26/19 11:29 Chloride 104 mmol/L (98-107) 11/26/19 11:29 Carbon Dioxide 24 mmol/L (22-29) 11/26/19 11:29 BUN 12 mg/dL (9.8-20.1) 11/26/19 11:29 Creatinine 0.73 mg/dL (0.6-1.1) 11/26/19 11:29 Glucose 272 mg/dL (70-105) H 11/26/19 11:29 Calcium 9.0 mg/dL (7.8-10.44) 11/26/19 11:29 Total Bilirubin 0.3 mg/dL (0.2-1.2) 11/26/19 11:29 AST 7 U/L (5-34) 11/26/19 11:29 ALT Less than 7 U/L (8-55) L 11/26/19 11:29 Alkaline Phosphatase 128 U/L (40-110) H 11/26/19 11:29 Troponin I Less than 0.010 ng/mL (< 0.028) 11/26/19 11:29 Serum Total Protein 6.9 g/dL (6.0-8.3) 11/26/19 11:29 Albumin 4.0 g/dL (3.5-5.0) 11/26/19 11:29 Urine Ketones Negative mg/dL (Negative) 11/26/19 12:45 Urine Blood Negative (Negative) 11/26/19 12:45 Urine Nitrite 2+ (Negative) A 11/26/19 12:45 Ur Leukocyte Esterase Negative Chilo/uL (Negative) 11/26/19 12:45 Urine RBC 0-3 HPF (0-3) 11/26/19 12:45 Urine WBC 4-6 HPF (0-3) A 11/26/19 12:45 Ur Squamous Epith Cells 0-3 HPF (0-3) 11/26/19 12:45 Urine Bacteria 4+ HPF (None Seen) A 11/26/19 12:45 PN A/P (1) Acute CVA (cerebrovascular accident) Code(s): I63.9 - CEREBRAL INFARCTION, UNSPECIFIED Status: Acute (2) Dysarthria Code(s): R47.1 - DYSARTHRIA AND ANARTHRIA Status: Acute (3) DM type 2 (diabetes mellitus, type 2) Status: Chronic Qualifiers: Diabetes mellitus turfgrass technician insulin use: without turfgrass technician use (4) Diabetes Code(s): E11.9 - TYPE 2 DIABETES MELLITUS WITHOUT COMPLICATIONS Status: Chronic (5) Dyslipidemia Code(s): E78.5 - HYPERLIPIDEMIA, UNSPECIFIED Status: Chronic (6) HTN (hypertension) Code(s): I10 - ESSENTIAL (PRIMARY) HYPERTENSION Status: Chronic Qualifiers: Hypertension type: essential hypertension Qualified Code(s): I10 - Essential (primary) hypertension - Plan Daily Plan: plan discussed w/ family, PT/OT, speech therapy, DVT proph w/SCDs 58-year-old female with history significant for substance abuse, and 2 prior strokes since the last 1 year presented with worsening neurological deficits. MRI of the brain reviewed and was consistent with triple acute infarctions in both left and right cerebral hemispheres. There was concern about cardioe mbolic phenomena. LEON to rule out cardioembolic source was negative for PFO or thrombus. Telemetry Neurochecks every 4 hours. EEG reviewed for confusion which was negative for seizure activity. Continue aspirin, Plavix and high intensity statin for secondary stroke prevention. Continue home medications. PT/OT/speech. Continue medical management per primary team. This management on board regarding discharge planning. Plan discussed with the patient, daughter and during the MDR rounds.
[2019-11-29 15:11] LABS: ANA Symphony (Qualitative) Negative (Negative); ANA Symphony (Quantitative) 0.1 Ratio (< 0.7 Negative); dsDNA IgG Antibody Less than 0.5 IU/mL (<10 Negative)
--- NOTE | 2019-11-29 17:09 | PDOC.HOSPP ---
- Subjective Encounter Date: 11/29/19 Encounter Time: 09:00 Subjective: Seen for follow-up for ischemic CVA. She is aphasic, unable answer questions, could not complete review of systems. - Objective Vital Signs & Weight: Vital Signs (12 hours) Temp Pulse Resp BP BP Pulse Ox 11/29/19 15:19 98.3 F 57 L 20 139/71 95 11/29/19 11:05 98.1 F 58 L 20 168/81 H 97 11/29/19 08:56 144/86 H 11/29/19 08:16 96 11/29/19 07:16 97.5 F L 61 16 157/81 H 96 Weight Admit Weight 107 lb 4.8 oz Weight 107 lb 4.8 oz I&O: 11/28/19 11/29/19 11/30/19 06:59 06:59 06:59 Intake Total 775 Balance 775 Result Diagrams: 11/26/19 11:29 11/26/19 11:29 Additional Labs: Accuchecks 11/29/19 11/29/19 11/29/19 17:04 11:11 05:57 POC Glucose 143 H 254 H 139 H 11/28/19 21:04 POC Glucose 300 H I reviewed patient's labs and MAR EKG Reviewed by me: Yes (Telemetry: NSR) Hospitalist ROS - Review of Systems ROS unobtainable: due to mental status - Medication Medications: Active Medications Generic Name Dose Route Start Last Admin Trade Name Freq PRN Reason Stop Dose Admin Acetaminophen 650 mg 11/28/19 17:10 11/28/19 17:22 Acetaminophen 650 Mg/20.3 Ml Udcup PO 650 mg Q6H PRN Administration Pain Aspirin 325 mg 11/27/19 09:00 11/29/19 08:19 Aspirin 325 Mg Tab PO 325 mg DAILY KRUPA Administration Atorvastatin Calcium 40 mg 11/26/19 21:00 11/28/19 20:58 Atorvastatin Calcium 40 Mg Tab PO 40 mg HS KRUPA Administration Clopidogrel Bisulfate 75 mg 11/27/19 09:00 11/29/19 08:19 Clopidogrel Bisulfate 75 Mg Tab PO 75 mg DAILY KRUPA Administration Insulin Glargine 10 units/ 0.1 mls @ 0 mls/hr 11/29/19 09:00 11/29/19 09:45 Miscellaneous Medication SC 0.1 mls QAM KRUPA Administration Insulin Human Lispro 0 units 11/27/19 01:18 11/28/19 21:05 Humalog 300 Units/3 Ml Vial SC 3 unit .BEDTIME SLIDING SC PRN Administration Bedtime Correctional Scale Insulin Human Lispro 0 units 11/27/19 14:45 11/29/19 11:50 Humalog 300 Units/3 Ml Vial SC 6 unit .MODERATE SLIDING SC PRN Administration Moderate Correctional Scale Sodium Chloride 10 ml 11/26/19 14:00 11/28/19 20:58 Flush - Normal Saline 10 Ml Syringe IVF 10 ml PRN PRN Administration Saline Flush - Exam General Appearance: awake alert Eye: anicteric sclera ENT: moist mucosa Neck: supple Heart: RRR Respiratory: CTAB Gastrointestinal: soft Extremities: no edema Skin: no rashes Musculoskeletal: no muscle wasting Psychiatric: normal affect, normal behavior Hosp A/P (1) Acute CVA (cerebrovascular accident) Code(s): I63.9 - CEREBRAL INFARCTION, UNSPECIFIED Status: Acute (2) DM type 2 (diabetes mellitus, type 2) Status: Chronic Qualifiers: Diabetes mellitus 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 Continue Lantus to 10 units daily, monitor Accu-Cheks and continue insulin sliding scale. Permissive hypertension. Patient was counseled regarding tobacco and recreational drug cessation.
[2019-11-29] MEDS: Atorvastatin Calcium 40 MG TAB PO SCH (21:06)
[2019-11-30 06:32] LABS: #Basophils 0.1 thou/uL (0.0-0.2); #Eosinphils 0.2 thou/uL (0.0-0.7); #Lymphocytes 2.8 thou/uL (1.20-3.40); #Monocytes 0.7 thou/uL (0.11-0.59); #Neutrophils 3.8 thou/uL (1.40-6.50); %Basophils 1.1 % (0.0-1.0); %Eosinophils 3.2 % (0.0-10.0); %Lymphocytes 36.6 % (21.0-51.0); %Monocytes 8.8 % (0.0-10.0); %Neutrophils 50.3 % (42.0-75.0); Hemoglobin 15.3 g/dL (12.0-16.0); Mean Corpuscular HGB CONC 33.7 g/dL (32.0-36.0); Mean Corpuscular Hemoglobin 32.4 pg (27.0-31.0); Mean Corpuscular Volume 96.1 fL (78.0-98.0); Mean Platelet Volume 7.4 fL (7.4-10.4); Platelet Count 215 thou/uL (130-400); RBC Distribution Width 11.4 % (11.5-14.5); Red Blood Cell (RBC) Count 4.73 mill/uL (4.20-5.40); White Blood Cell (WBC) Count 7.6 thou/uL (4.8-10.8)
[2019-11-30 08:10] LABS: Anion Gap 15 mmol/L (10-20); BUN (Urea Nitrogen) 11 mg/dL (9.8-20.1); Calc. Creatinine Clearance 69 mL/min (70-130); Calcium 8.7 mg/dL (7.8-10.44); Carbon Dioxide 23 mmol/L (22-29); Chloride 105 mmol/L (98-107); Estimated GFR-MDRD 90; Glucose 144 mg/dL (70-105); Potassium 3.9 mmol/L (3.5-5.1); Sodium 139 mmol/L (136-145)
[2019-11-30] MEDS: Clopidogrel Bisulfate 75 MG TAB PO SCH (08:48)
[2019-11-30] MEDS: Aspirin 325 MG TAB PO SCH (08:48)
[2019-11-30] MEDS: Insulin Glargine 10 UNITS in Pre-Filled Syringe 1 EACH SC SCH (08:50)
--- NOTE | 2019-11-30 09:32 | PRG ---
DATE OF SERVICE: 11/30/2019 The patient was admitted with recurrent stroke. She has a LINQ in place. The device read possible brief episodes of nonsustained atrial fibrillation, longest being 6 minutes back in July, another episode more recently. I reviewed all these, looked like they are all sinus rhythm and some sinus tachycardia. There is no evidence of any atrial arrhythmias. Dr. Mayorga did transesophageal echo showing no evidence of any cardioembolic source. Job ID: [id number]
[2019-11-30] MEDS: HumaLOG 300 UNITS/3 ML VIAL SC PRN ×2 (11:31→21:00)
--- NOTE | 2019-11-30 11:44 | PDOC.NEUPN ---
- Subjective Encounter Date: 11/30/19 Subjective: No complaints reported overnight. - Objective Vital Signs & Weight: Vital Signs (12 hours) Temp Pulse Pulse Pulse Resp BP BP 11/30/19 09:20 61 61 141/74 H 155/72 H 11/30/19 08:00 98.8 F 54 L 17 11/30/19 04:00 97.6 F 67 18 BP Pulse Ox 11/30/19 09:20 11/30/19 08:00 175/78 H 96 11/30/19 04:00 122/82 100 Weight Admit Weight 107 lb 4.8 oz Weight 107 lb 4.8 oz I&O: 11/29/19 11/30/19 12/01/19 06:59 06:59 06:59 Intake Total 1080 360 Balance 1080 360 Result Diagrams: 11/30/19 04:20 11/30/19 07:22 Additional Labs: Accuchecks 11/30/19 11/30/19 11/29/19 10:37 05:46 20:59 POC Glucose 330 H 143 H 328 H 11/29/19 17:04 POC Glucose 143 H Radiology Reviewed by me: Yes EKG Reviewed by me: Yes ROS - Review of Systems ROS unobtainable: due to mental status (aphasia) - Medication Medications: Active Medications Generic Name Dose Route Start Last Admin Trade Name Freq PRN Reason Stop Dose Admin Acetaminophen 650 mg 11/28/19 17:10 11/28/19 17:22 Acetaminophen 650 Mg/20.3 Ml Udcup PO 650 mg Q6H PRN Administration Pain Aspirin 325 mg 11/27/19 09:00 11/30/19 08:48 Aspirin 325 Mg Tab PO 325 mg DAILY KRUPA Administration Atorvastatin Calcium 40 mg 11/26/19 21:00 11/29/19 21:06 Atorvastatin Calcium 40 Mg Tab PO 40 mg HS KRUPA Administration Clopidogrel Bisulfate 75 mg 11/27/19 09:00 11/30/19 08:48 Clopidogrel Bisulfate 75 Mg Tab PO 75 mg DAILY KRUPA Administration Insulin Glargine 10 units/ 0.1 mls @ 0 mls/hr 11/29/19 09:00 11/30/19 08:50 Miscellaneous Medication SC 0.1 mls QAM KRUPA Administration Insulin Human Lispro 0 units 11/27/19 01:18 11/29/19 22:03 Humalog 300 Units/3 Ml Vial SC 4 unit .BEDTIME SLIDING SC PRN Administration Bedtime Correctional Scale Insulin Human Lispro 0 units 11/27/19 14:45 11/30/19 11:31 Humalog 300 Units/3 Ml Vial SC 8 unit .MODERATE SLIDING SC PRN Administration Moderate Correctional Scale Sodium Chloride 10 ml 11/26/19 14:00 11/29/19 21:06 Flush - Normal Saline 10 Ml Syringe IVF 10 ml PRN PRN Administration Saline Flush - Exam General Appearance: awake alert Eye: PERRL ENT: normocephalic atraumatic Neck: supple Respiratory: CTAB Cardiovascular: RRR Gastrointestinal: soft Extremities: no cyanosis Skin: normal turgor Neurological: no new deficit Musculoskeletal: no muscle wasting PSYCH: normal affect, normal behavior, oriented to person Results - Labs Result Diagrams: 11/30/19 04:20 11/30/19 07:22 Lab results: WBC 7.6 thou/uL (4.8-10.8) 11/30/19 04:20 Hgb 15.3 g/dL (12.0-16.0) 11/30/19 04:20 Hct 45.5 % (36.0-47.0) 11/30/19 04:20 MCV 96.1 fL (78.0-98.0) 11/30/19 04:20 Plt Count 215 thou/uL (130-400) 11/30/19 04:20 Neutrophils % 50.3 % (42.0-75.0) 11/30/19 04:20 ESR Westergren 32 mm/hr (Less than 30) 11/26/19 11:29 Sodium 139 mmol/L (136-145) 11/30/19 07:22 Potassium 3.9 mmol/L (3.5-5.1) 11/30/19 07:22 Chloride 105 mmol/L (98-107) 11/30/19 07:22 Carbon Dioxide 23 mmol/L (22-29) 11/30/19 07:22 BUN 11 mg/dL (9.8-20.1) 11/30/19 07:22 Creatinine 0.67 mg/dL (0.6-1.1) 11/30/19 07:22 Glucose 144 mg/dL (70-105) H 11/30/19 07:22 Calcium 8.7 mg/dL (7.8-10.44) 11/30/19 07:22 Total Bilirubin 0.3 mg/dL (0.2-1.2) 11/26/19 11:29 AST 7 U/L (5-34) 11/26/19 11:29 ALT Less than 7 U/L (8-55) L 11/26/19 11:29 Alkaline Phosphatase 128 U/L (40-110) H 11/26/19 11:29 Troponin I Less than 0.010 ng/mL (< 0.028) 11/26/19 11:29 Serum Total Protein 6.9 g/dL (6.0-8.3) 11/26/19 11:29 Albumin 4.0 g/dL (3.5-5.0) 11/26/19 11:29 Urine Ketones Negative mg/dL (Negative) 11/26/19 12:45 Urine Blood Negative (Negative) 11/26/19 12:45 Urine Nitrite 2+ (Negative) A 11/26/19 12:45 Ur Leukocyte Esterase Negative Chilo/uL (Negative) 11/26/19 12:45 Urine RBC 0-3 HPF (0-3) 11/26/19 12:45 Urine WBC 4-6 HPF (0-3) A 11/26/19 12:45 Ur Squamous Epith Cells 0-3 HPF (0-3) 11/26/19 12:45 Urine Bacteria 4+ HPF (None Seen) A 11/26/19 12:45 PN A/P (1) Acute CVA (cerebrovascular accident) Code(s): I63.9 - CEREBRAL INFARCTION, UNSPECIFIED Status: Acute (2) Dysarthria Code(s): R47.1 - DYSARTHRIA AND ANARTHRIA Status: Acute (3) DM type 2 (diabetes mellitus, type 2) Status: Chronic Qualifiers: Diabetes mellitus terminal superintendent insulin use: without terminal superintendent use (4) Diabetes Code(s): E11.9 - TYPE 2 DIABETES MELLITUS WITHOUT COMPLICATIONS Status: Chronic (5) Dyslipidemia Code(s): E78.5 - HYPERLIPIDEMIA, UNSPECIFIED Status: Chronic (6) HTN (hypertension) Code(s): I10 - ESSENTIAL (PRIMARY) HYPERTENSION Status: Chronic Qualifiers: Hypertension type: essential hypertension Qualified Code(s): I10 - Essential (primary) hypertension - Plan Daily Plan: PT/OT, speech therapy, DVT proph w/SCDs 58-year-old female with history significant for substance abuse, and [address] rokes since the last 1 year presented with worsening neurological deficits. MRI of the brain reviewed and was consistent with multiple tiny acute infarctions in both left and right cerebral hemispheres. There was concern about cardioembolic phenomena. LEON to rule out cardioembolic source was negative for PFO or thrombus. Patient has Linq device in place and cardiology is on board Continue telemetry Neurochecks every 4 hours. EEG reviewed for confusion which was negative for seizure activity. Continue aspirin, Plavix and high intensity statin for secondary stroke prevention. Continue home medications. PT/OT/speech. Continue medical management per primary team and cardiology. Case management management on board regarding discharge planning. Plan discussed during the MDR rounds.
--- NOTE | 2019-11-30 14:23 | PDOC.FMACP ---
Advance Care Planning - Problem (1) Palliative care encounter Status: Acute Code(s): Z51.5 - ENCOUNTER FOR PALLIATIVE CARE (2) CVA (cerebral vascular accident) Status: Acute Code(s): I63.9 - CEREBRAL INFARCTION, UNSPECIFIED (3) DM type 2 (diabetes mellitus, type 2) Status: Chronic Qualifiers: Diabetes mellitus intermediate teacher insulin use: without retirement use (4) Substance abuse Status: Chronic Code(s): F19.10 - OTHER PSYCHOACTIVE SUBSTANCE ABUSE, UNCOMPLICATED (5) Tobacco abuse Status: Chronic Code(s): Z72.0 - TOBACCO USE - Note Participants: patient, palliative care Summary: Palliative Care addressed Advanced Care Planning.The diagnosis, prognosis and goals of care were discussed. Appropriate forms and documentation to accomplish the goals of care were discussed. All questions were answered. Ms Fitch elected to complete MPOA and Directive to Physician as well as transition to DNAR and complete OOHDNAR. Documents and noterized as appropriate. Original of MPOA, Directive to physician and OOHDNAR given to the patient, copies placed on chart for medical records. Please also refer to palliative care notes 12/01/2019 Dr Herman notified. Time Spent (mins): 20
--- NOTE | 2019-11-30 16:26 | PDOC.HOSPP ---
- Subjective Encounter Date: 11/30/19 Encounter Time: 08:00 Subjective: Patient seen for follow-up for stroke. Sleepy but arousable, not answering questions, could not complete review of systems. - Objective Vital Signs & Weight: Vital Signs (12 hours) Temp Pulse Pulse Pulse Resp BP BP 11/30/19 15:17 98.5 F 60 16 11/30/19 12:10 98.8 F 58 L 15 11/30/19 09:20 61 61 141/74 H 155/72 H 11/30/19 08:00 98.8 F 54 L 17 BP Pulse Ox 11/30/19 15:17 150/74 H 94 L 11/30/19 12:10 142/69 H 96 11/30/19 09:20 11/30/19 08:00 175/78 H 96 Weight Admit Weight 107 lb 4.8 oz Weight 107 lb 4.8 oz I&O: 11/29/19 11/30/19 12/01/19 06:59 06:59 06:59 Intake Total 1080 480 Balance 1080 480 Result Diagrams: 11/30/19 04:20 11/30/19 07:22 Additional Labs: Accuchecks 11/30/19 11/30/19 11/29/19 10:37 05:46 20:59 POC Glucose 330 H 143 H 328 H 11/29/19 11/26/19 17:04 11:30 POC Glucose 143 H 274 H I reviewed patient's labs and MAR EKG Reviewed by me: Yes (Telemetry: Normal sinus rhythm) Hospitalist ROS - Review of Systems ROS unobtainable: due to mental status - Medication Medications: Active Medications Generic Name Dose Route Start Last Admin Trade Name Freq PRN Reason Stop Dose Admin Acetaminophen 650 mg 11/28/19 17:10 11/28/19 17:22 Acetaminophen 650 Mg/20.3 Ml Udcup PO 650 mg Q6H PRN Administration Pain Aspirin 325 mg 11/27/19 09:00 11/30/19 08:48 Aspirin 325 Mg Tab PO 325 mg DAILY KRUPA Administration Atorvastatin Calcium 40 mg 11/26/19 21:00 11/29/19 21:06 Atorvastatin Calcium 40 Mg Tab PO 40 mg HS KRUPA Administration Clopidogrel Bisulfate 75 mg 11/27/19 09:00 11/30/19 08:48 Clopidogrel Bisulfate 75 Mg Tab PO 75 mg DAILY KRUPA Administration Insulin Glargine 10 units/ 0.1 mls @ 0 mls/hr 11/29/19 09:00 11/30/19 08:50 Miscellaneous Medication SC 0.1 mls QAM KRUPA Administration Insulin Human Lispro 0 units 11/27/19 01:18 11/29/19 22:03 Humalog 300 Units/3 Ml Vial SC 4 unit .BEDTIME SLIDING SC PRN Administration Bedtime Correctional Scale Insulin Human Lispro 0 units 11/27/19 14:45 11/30/19 11:31 Humalog 300 Units/3 Ml Vial SC 8 unit .MODERATE SLIDING SC PRN Administration Moderate Correctional Scale Sodium Chloride 10 ml 11/26/19 14:00 11/29/19 21:06 Flush - Normal Saline 10 Ml Syringe IVF 10 ml PRN PRN Administration Saline Flush - Exam General Appearance: awake alert Eye: scleral icterus ENT: normocephalic atraumatic Neck: supple Heart: RRR Respiratory: CTAB Gastrointestinal: soft Extremities: no cyanosis Skin: no rashes Neurological - other findings: Aphasia Musculoskeletal: no muscle wasting Psychiatric: normal affect Hosp A/P (1) Acute CVA (cerebrovascular accident) Code(s): I63.9 - CEREBRAL INFARCTION, UNSPECIFIED Status: Acute (2) DM type 2 (diabetes mellitus, type 2) Status: Chronic Qualifiers: Diabetes mellitus emt intermediate insulin use: without emt intermediate use (3) Dyslipidemia Code(s): E78.5 - HYPERLIPIDEMIA, UNSPECIFIED Status: Chronic (4) HTN (hypertension) Code(s): I10 - ESSENTIAL (PRIMARY) HYPERTENSION Status: Chronic Qualifiers: Hypertension type: essential hypertension Qualified Code(s): I10 - Essential (primary) hypertension (5) Substance abuse Code(s): F19.10 - OTHER PSYCHOACTIVE SUBSTANCE ABUSE, UNCOMPLICATED Status: Chronic (6) Tobacco abuse Code(s): Z72.0 - TOBACCO USE Status: Chronic - Plan Continue aspirin, Plavix and Lipitor. Increase Lantus to 15 units daily. Discharge planning in progress.
[2019-11-30] MEDS ORDERED: Insulin Glargine 5 UNITS in Pre-Filled Syringe 1 EACH SC SCH (16:30)
[2019-11-30] MEDS: Atorvastatin Calcium 40 MG TAB PO SCH (20:59)
[2019-12-01 05:04] LABS: #Basophils 0.1 thou/uL (0.0-0.2); #Eosinphils 0.2 thou/uL (0.0-0.7); #Monocytes 0.8 thou/uL (0.11-0.59); #Neutrophils 4.7 thou/uL (1.40-6.50); %Basophils 0.8 % (0.0-1.0); %Eosinophils 2.8 % (0.0-10.0); %Monocytes 8.6 % (0.0-10.0); %Neutrophils 53.8 % (42.0-75.0); Hemoglobin 14.4 g/dL (12.0-16.0); Mean Corpuscular HGB CONC 34.9 g/dL (32.0-36.0); Mean Corpuscular Hemoglobin 32.9 pg (27.0-31.0); Mean Corpuscular Volume 94.2 fL (78.0-98.0); Mean Platelet Volume 7.3 fL (7.4-10.4); Platelet Count 253 thou/uL (130-400); RBC Distribution Width 11.4 % (11.5-14.5); Red Blood Cell (RBC) Count 4.37 mill/uL (4.20-5.40); White Blood Cell (WBC) Count 8.8 thou/uL (4.8-10.8)
[2019-12-01 05:22] LABS: Anion Gap 11 mmol/L (10-20); BUN (Urea Nitrogen) 11 mg/dL (9.8-20.1); Calc. Creatinine Clearance 70 mL/min (70-130); Calcium 8.9 mg/dL (7.8-10.44); Carbon Dioxide 26 mmol/L (22-29); Chloride 107 mmol/L (98-107); Estimated GFR-MDRD Greater than 90; Glucose 124 mg/dL (70-105); Potassium 3.9 mmol/L (3.5-5.1); Sodium 140 mmol/L (136-145)
[2019-12-01] MEDS ORDERED: Insulin Glargine 15 UNITS in Pre-Filled Syringe 1 EACH SC SCH (09:00)
[2019-12-01] MEDS: metFORMIN 850 MG TAB PO SCH ×2 (09:14→18:08)
[2019-12-01] MEDS: glipiZIDE 5 MG TAB PO SCH (09:15)
[2019-12-01] MEDS: Aspirin 325 MG TAB PO SCH (09:16)
[2019-12-01] MEDS: Clopidogrel Bisulfate 75 MG TAB PO SCH (09:16)
[2019-12-01] MEDS: Lisinopril 20 MG TAB PO SCH (09:17)
[2019-12-01] MEDS: HumaLOG 300 UNITS/3 ML VIAL SC PRN (12:33)
--- NOTE | 2019-12-01 16:44 | CT ---
CT BRAIN WITHOUT CONTRAST: 12/01/19 HISTORY: Changes in mental status. COMPARISON: 11/26/19. FINDINGS: There is a new small area of decreased attenuation in the left anterior frontal lobe which is suspici ous for a new acute infarction. No intracranial hemorrhage is seen. The remainder of the exam is othe rwise stable. IMPRESSION: Findings are suspicious for a new acute infarction in the left frontal lobe since 11/26/19. POS: AH
--- NOTE | 2019-12-01 18:57 | PDOC.HOSPP ---
- Subjective Encounter Date: 12/01/19 Encounter Time: 18:57 Subjective: Pt seen for followup re: ischemic CVA. Sleepy but arousable, not answering questions. Could not complete ROS. - Objective Vital Signs & Weight: Vital Signs (12 hours) Temp Pulse Resp BP Pulse Ox 12/01/19 14:46 98.3 F 70 18 101/57 L 94 L 12/01/19 11:25 97.1 F L 61 14 132/75 98 12/01/19 07:47 98.0 F 57 L 14 143/69 H 98 Weight Admit Weight 107 lb 4.8 oz Weight 107 lb 4.8 oz I&O: 11/30/19 12/01/19 12/02/19 06:59 06:59 06:59 Intake Total 1080 720 600 Balance 1080 720 600 Result Diagrams: 12/01/19 04:43 12/01/19 04:43 Additional Labs: Accuchecks 12/01/19 12/01/19 12/01/19 17:07 15:55 15:02 POC Glucose 111 H 69 L 52 L* 12/01/19 12/01/19 11/30/19 11:08 06:24 20:27 POC Glucose 174 H 149 H 274 H I reviewed patient's labs and MAR EKG Reviewed by me: Yes (Telemetry: Normal sinus rhythm) Hospitalist ROS - Review of Systems ROS unobtainable: due to mental status - Medication Medications: Active Medications Generic Name Dose Route Start Last Admin Trade Name Freq PRN Reason Stop Dose Admin Acetaminophen 650 mg 11/28/19 17:10 11/28/19 17:22 Acetaminophen 650 Mg/20.3 Ml Udcup PO 650 mg Q6H PRN Administration Pain Aspirin 325 mg 11/27/19 09:00 12/01/19 09:16 Aspirin 325 Mg Tab PO 325 mg DAILY KRUPA Administration Atorvastatin Calcium 40 mg 11/26/19 21:00 11/30/19 20:59 Atorvastatin Calcium 40 Mg Tab PO 40 mg HS KRUPA Administration Clopidogrel Bisulfate 75 mg 11/27/19 09:00 12/01/19 09:16 Clopidogrel Bisulfate 75 Mg Tab PO 75 mg DAILY KRUPA Administration Glipizide 5 mg 12/01/19 07:30 12/01/19 09:15 Glipizide 5 Mg Tab PO 5 mg DAILY-AC KRUPA Administration Insulin Glargine 15 units/ 0.15 mls @ 0 mls/hr 12/01/19 09:00 12/01/19 09:37 Miscellaneous Medication SC 0.15 mls QAM KRUPA Administration Insulin Human Lispro 0 units 11/27/19 01:18 11/30/19 21:00 Humalog 300 Units/3 Ml Vial SC 3 unit .BEDTIME SLIDING SC PRN Administration Bedtime Correctional Scale Insulin Human Lispro 0 units 11/27/19 14:45 12/01/19 12:33 Humalog 300 Units/3 Ml Vial SC 2 unit .MODERATE SLIDING SC PRN Administration Moderate Correctional Scale Lisinopril 20 mg 12/01/19 09:00 12/01/19 09:17 Lisinopril 20 Mg Tab PO 20 mg DAILY KRUPA Administration Metformin HCl 850 mg 12/01/19 08:00 12/01/19 18:08 Metformin 850 Mg Tab PO 850 mg BID-WM KRUPA Administration Sodium Chloride 10 ml 11/26/19 14:00 11/29/19 21:06 Flush - Normal Saline 10 Ml Syringe IVF 10 ml PRN PRN Administration Saline Flush - Exam Eye: anicteric sclera ENT: normocephalic atraumatic Neck: supple Heart: RRR Respiratory: CTAB Gastrointestinal: soft, non-tender Skin: no rashes Musculoskeletal: no muscle wasting Psychiatric: lethargic Hosp A/P (1) Acute CVA (cerebrovascular accident) Code(s): I63.9 - CEREBRAL INFARCTION, UNSPECIFIED Status: Acute (2) DM type 2 (diabetes mellitus, type 2) Status: Chronic Qualifiers: Diabetes mellitus penitentiary insulin use: without penitentiary use (3) Dyslipidemia Code(s): E78.5 - HYPERLIPIDEMIA, UNSPECIFIED Status: Chronic (4) HTN (hypertension) Code(s): I10 - ESSENTIAL (PRIMARY) HYPERTENSION Status: Chronic Qualifiers: Hypertension type: essential hypertension Qualified Code(s): I10 - Essential (primary) hypertension (5) Substance abuse Code(s): F19.10 - OTHER PSYCHOACTIVE SUBSTANCE ABUSE, UNCOMPLICATED Status: Chronic (6) Tobacco abuse Code(s): Z72.0 - TOBACCO USE Status: Chronic - Plan Patient was initially admitted for ischemic cerebrovascular accident. She is aphasic. There was an episode of decreased mentation today. Patient went for repeat CT scan and was found to have new infarct in the left frontal lobe. Frequent neuro checks, permissive hypertension. We will continue aspirin, Plavix and Lipitor. Patient had episode of hypoglycemia, decrease Lantus to 10 units daily. Discharge planning in progress. Financial status is a barrier.
[2019-12-01] MEDS: Atorvastatin Calcium 40 MG TAB PO SCH (22:24)
[2019-12-02 04:49] LABS: #Basophils 0.1 thou/uL (0.0-0.2); #Eosinphils 0.2 thou/uL (0.0-0.7); #Lymphocytes 3.3 thou/uL (1.20-3.40); #Monocytes 1.1 thou/uL (0.11-0.59); #Neutrophils 7.8 thou/uL (1.40-6.50); %Basophils 1.1 % (0.0-1.0); %Eosinophils 1.9 % (0.0-10.0); %Lymphocytes 26.1 % (21.0-51.0); %Monocytes 8.8 % (0.0-10.0); %Neutrophils 62.1 % (42.0-75.0); Hemoglobin 14.7 g/dL (12.0-16.0); Mean Corpuscular HGB CONC 33.9 g/dL (32.0-36.0); Mean Corpuscular Hemoglobin 32.5 pg (27.0-31.0); Mean Corpuscular Volume 95.9 fL (78.0-98.0); Mean Platelet Volume 6.9 fL (7.4-10.4); Platelet Count 269 thou/uL (130-400); RBC Distribution Width 11.4 % (11.5-14.5); Red Blood Cell (RBC) Count 4.51 mill/uL (4.20-5.40); White Blood Cell (WBC) Count 12.5 thou/uL (4.8-10.8)
[2019-12-02 05:36] LABS: Anion Gap 14 mmol/L (10-20); BUN (Urea Nitrogen) 19 mg/dL (9.8-20.1); Calc. Creatinine Clearance 66 mL/min (70-130); Carbon Dioxide 25 mmol/L (22-29); Chloride 104 mmol/L (98-107); Estimated GFR-MDRD 85; Glucose 90 mg/dL (70-105); Potassium 3.6 mmol/L (3.5-5.1); Sodium 139 mmol/L (136-145)
[2019-12-02] MEDS: metFORMIN 850 MG TAB PO SCH ×2 (10:10→17:22)
[2019-12-02] MEDS: glipiZIDE 5 MG TAB PO SCH (10:10)
[2019-12-02] MEDS: Insulin Glargine 10 UNITS in Pre-Filled Syringe 1 EACH SC SCH (10:10)
[2019-12-02] MEDS: Clopidogrel Bisulfate 75 MG TAB PO SCH (10:11)
[2019-12-02] MEDS: Lisinopril 20 MG TAB PO SCH (10:11)
[2019-12-02] MEDS: Aspirin 325 MG TAB PO SCH (10:11)
--- NOTE | 2019-12-02 18:23 | PDOC.HOSPP ---
- Subjective Encounter Date: 12/02/19 Encounter Time: 10:00 Subjective: The patient has no complaints, no headache, arm numbness. She is oriented to place. She has no chest pain She has mild dysarthria - Objective Vital Signs & Weight: Vital Signs (12 hours) Temp Pulse Resp BP Pulse Ox 12/02/19 16:14 98.2 F 69 18 160/63 H 97 12/02/19 07:49 98.0 F 77 16 181/84 H 95 Weight Admit Weight 107 lb 4.8 oz Weight 107 lb 4.8 oz I&O: 12/01/19 12/02/19 12/03/19 06:59 06:59 06:59 Intake Total 720 940 325 Balance 720 940 325 Result Diagrams: 12/02/19 04:26 12/02/19 04:26 Additional Labs: Accuchecks 12/02/19 12/02/19 12/02/19 17:05 10:35 05:55 POC Glucose 96 169 H 102 H 12/01/19 21:30 POC Glucose 138 H Hospitalist ROS - Review of Systems Constitutional: denies: fever, chills - Medication Medications: Active Medications Generic Name Dose Route Start Last Admin Trade Name Freq PRN Reason Stop Dose Admin Acetaminophen 650 mg 11/28/19 17:10 11/28/19 17:22 Acetaminophen 650 Mg/20.3 Ml Udcup PO 650 mg Q6H PRN Administration Pain Aspirin 325 mg 11/27/19 09:00 12/02/19 10:11 Aspirin 325 Mg Tab PO 325 mg DAILY KRUPA Administration Atorvastatin Calcium 40 mg 11/26/19 21:00 12/01/19 22:24 Atorvastatin Calcium 40 Mg Tab PO 40 mg HS KRUPA Administration Clopidogrel Bisulfate 75 mg 11/27/19 09:00 12/02/19 10:11 Clopidogrel Bisulfate 75 Mg Tab PO 75 mg DAILY KRUPA Administration Glipizide 5 mg 12/01/19 07:30 12/02/19 10:10 Glipizide 5 Mg Tab PO 5 mg DAILY-AC KRUPA Administration Insulin Glargine 10 units/ 0.1 mls @ 0 mls/hr 12/02/19 09:00 12/02/19 10:10 Miscellaneous Medication SC 0.1 mls QAM KRUPA Administration Insulin Human Lispro 0 units 11/27/19 01:18 11/30/19 21:00 Humalog 300 Units/3 Ml Vial SC 3 unit .BEDTIME SLIDING SC PRN Administration Bedtime Correctional Scale Insulin Human Lispro 0 units 11/27/19 14:45 12/01/19 12:33 Humalog 300 Units/3 Ml Vial SC 2 unit .MODERATE SLIDING SC PRN Administration Moderate Correctional Scale Lisinopril 20 mg 12/01/19 09:00 12/02/19 10:11 Lisinopril 20 Mg Tab PO Not Given DAILY KRUPA Metformin HCl 850 mg 12/01/19 08:00 12/02/19 17:22 Metformin 850 Mg Tab PO 850 mg BID-WM KRUPA Administration Sodium Chloride 10 ml 11/26/19 14:00 11/29/19 21:06 Flush - Normal Saline 10 Ml Syringe IVF 10 ml PRN PRN Administration Saline Flush - Exam General Appearance: NAD, awake alert Eye: PERRL, anicteric sclera ENT: normocephalic atraumatic, no oropharyngeal lesions Neck: no JVD Heart: RRR, no murmur, no gallops, no rubs Respiratory: CTAB, no wheezes, no rales, no ronchi Gastrointestinal: soft, non-tender, non-distended, normal bowel sounds Extremities: no cyanosis, no clubbing, no edema Skin: normal turgor, no lesions, no rashes Neurological: normal sensation to touch, speech deficit Neurological - other findings: left arm 3/5. 5/5 strength RLE and LLE Musculoskeletal: normal tone, normal strength, no muscle wasting Psychiatric: normal affect, normal behavior, A&O x 3, oriented to person Hosp A/P - Plan CT brain 11/25: old infarcts right frontoparietal and right occipital MRI brain 11/25: multifocal bilateral acute infarts with more extensive and numerous in left cerebral hemisphere with new infarcts left frontal lobe, left deep white matter, left parietal lobe and left basal ganglia. Acute cortical infarct right parietal lobe CT head 11/30: new acute infarction in left frontal lobe CTA: mild stenosis of left ICA, Narrowing of right ICA. This is a 58 year old female who presented with aphasia and left sided facial droop. She has prior history of meth use. SHe had recurrent stroke 11/30 Acute left frontal and right parietal stroke -CT head showed old right frontoparietal and right occipital stroke. MRI brain showed new infarcts left side on 11/25 and acute infarct right parietal lobe and new infarct left frontal lobe - CTA head and neck showed narrowing of right ICA. Discussed with neurosurgery , no intervention and recommended vascular. Vascular consulted today, stated nothing to do - LEON showed no thrombus or PFO - continue aspirin, statin, plavix Hypertension - can resume lisinopril today after 4 pm Diabetes - continue lantus 10 units qam - continue metformin
--- NOTE | 2019-12-02 18:53 | CON ---
DATE OF CONSULTATION: 12/02/2019 REQUESTING PHYSICIAN: Dr. Lester. CHIEF COMPLAINT: Difficulty speaking. HISTORY OF PRESENT ILLNESS: The patient is a 58-year-old diabetic, smoker with hypertension, who uses methamphetamines, who was admitted here in October of last year with a right hemispheric stroke, manifest as a left facial droop and left-sided weakness. She was admitted again about a week ago, when she was found to be dysarthric. She was found to have had a left hemispheric CVA. The patient appears to have difficulty with level of consciousness, understanding questions and she certainly has trouble communicating, but she was not able to describe any antecedent similar episodes to suggest TIAs. She has had a relatively uneventful hospital course. An MRI showed in addition to encephalomalacia and gliosis at the previous right frontal, occipital, and parietal lobes, changes in the left cerebral hemisphere in the frontal cortex with some evidence of sulcal effacement and some tiny foci, consistent with acute infarcts in the left parietal lobe in a watershed distribution. There is also reported to have foci of acute infarct in the right parietal lobe near the previous parietal infarct. CTA of the brain showed no evidence of left-sided carotid disease. Her right carotid had an abrupt change in caliber of the internal carotid about 2.5 cm or so from its origin and that diminutive size was seen extending on through the base of the skull. The patient had a LEON, that shows no septal defects, no thrombus, but does show an atherosclerotic arch. PAST MEDICAL HISTORY: As above. HOME MEDICATIONS: 1. Pravastatin. 2. Plavix. 3. Glipizide. 4. Lisinopril. 5. Metformin. 6. Baby aspirin. Compliance is uncertain. ALLERGIES: SHE HAS NO KNOWN ALLERGIES. SOCIAL HISTORY: Continues to smoke cigarettes and use methamphetamines. FAMILY HISTORY: Significant for breast cancer. REVIEW OF SYSTEMS: Virtually unobtainable. PHYSICAL EXAMINATION: GENERAL: She is a rather warm and weathered appearing woman who appears older than her stated age. VITAL SIGNS: Heart rate 69, blood pressure 160/63, temperature is 98.2, room air O2 saturations are 97%. Height 5 feet 3 inches, weight 107 pounds. LUNGS: She has clear breath sounds. CARDIOVASCULAR: Regular rate and rhythm. She has a left carotid bruit. ABDOMEN: Soft and nontender. 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 Her other extremities appear to be grossly normal. NEUROLOGIC: She was not able to cooperate with cranial nerve exam. LABORATORY DATA: Her hemoglobin is 14.7 and platelets 269,000. Electrolytes were normal. BUN 19 and creatinine 0.7. Her hemoglobin A1c, however, on presentation was 12.0. Her glucose on her initial chemistries is 72. IMPRESSION AND RECOMMENDATIONS: I seen no evidence of any cardiovascular lesion appropriate or amenable to surgical repair. She certainly needs to be on antiplatelet agents. She needs to quit smoking, quit doing drugs, take better care of her diabetes and her hypertension as well as keeping her lipids under control. Job ID: [id number]
[2019-12-02] MEDS ORDERED: Lisinopril 20 MG TAB PO SCH (19:30)
[2019-12-02] MEDS: Atorvastatin Calcium 40 MG TAB PO SCH (21:11)
[2019-12-03] MEDS ORDERED: Insulin Glargine 5 UNITS in Pre-Filled Syringe 1 EACH SC SCH (09:00)
[2019-12-03] MEDS: Aspirin 325 MG TAB PO SCH (09:07)
[2019-12-03] MEDS: Clopidogrel Bisulfate 75 MG TAB PO SCH (09:07)
[2019-12-03] MEDS: glipiZIDE 5 MG TAB PO SCH (09:07)
[2019-12-03] MEDS: Lisinopril 20 MG TAB PO SCH (09:07)
[2019-12-03] MEDS: Insulin Glargine 10 UNITS in Pre-Filled Syringe 1 EACH SC SCH (09:07)
[2019-12-03] MEDS: metFORMIN 850 MG TAB PO SCH ×2 (09:07→18:56)
[2019-12-03 10:44] LABS: Hemoglobin 15.2 g/dL (12.0-16.0); Mean Corpuscular HGB CONC 35.1 g/dL (32.0-36.0); Mean Corpuscular Hemoglobin 33.2 pg (27.0-31.0); Mean Corpuscular Volume 94.6 fL (78.0-98.0); Mean Platelet Volume 7.3 fL (7.4-10.4); Platelet Count 268 thou/uL (130-400); RBC Distribution Width 11.3 % (11.5-14.5); Red Blood Cell (RBC) Count 4.59 mill/uL (4.20-5.40); White Blood Cell (WBC) Count 12.5 thou/uL (4.8-10.8)
[2019-12-03] MEDS ORDERED: Aggrenox 200-25mg CAP PO SCH (13:15)
[2019-12-03] MEDS ORDERED: metFORMIN 850 MG TAB PO SCH (13:15)
--- NOTE | 2019-12-03 14:01 | RAD ---
Chest one view HISTORY: Leukocytosis. COMPARISON: 11/08/2018. FINDINGS: Cardiac silhouette is magnified by projection. Pulmonary vasculature is unremarkable. Mediastinum is midline. Electronic monitoring device overlies the chest wall. No lobar consolidation or evidence of pneumothorax. IMPRESSION : No abnormalities are demonstrated.
--- NOTE | 2019-12-03 17:39 | PDOC.HOSPP ---
- Subjective Encounter Date: 12/03/19 Encounter Time: 12:00 Subjective: F/u: stroke The patient is doing well. She has no complaints. SHe denies dizziness or lightheadedness, weakness or numbness. Spoke with the patient's mother and brother today in person. They are looking into sending her to a jail. She has had multiple strokes in the past. Mother states she was noncompliant with her medication. Discussed stroke workup done so far - Objective Vital Signs & Weight: Vital Signs (12 hours) Temp Pulse Resp BP BP Pulse Ox 12/03/19 15:31 99.0 F 65 14 135/88 95 12/03/19 11:11 98.8 F 65 17 116/67 96 12/03/19 09:34 98.1 F 69 13 121/71 96 12/03/19 09:07 121/71 12/03/19 08:55 96 Weight Admit Weight 107 lb 4.8 oz Weight 107 lb 4.8 oz I&O: 12/02/19 12/03/19 12/04/19 06:59 06:59 06:59 Intake Total 940 1105 Balance 940 1105 Result Diagrams: 12/03/19 10:36 12/02/19 04:26 Additional Labs: Accuchecks 12/03/19 12/03/19 12/03/19 17:17 10:37 05:43 POC Glucose 118 H 124 H 88 12/03/19 12/02/19 00:41 21:55 POC Glucose 103 H 65 L Hospitalist ROS - Review of Systems Constitutional: denies: fever, chills - Medication Medications: Active Medications Generic Name Dose Route Start Last Admin Trade Name Freq PRN Reason Stop Dose Admin Acetaminophen 650 mg 11/28/19 17:10 11/28/19 17:22 Acetaminophen 650 Mg/20.3 Ml Udcup PO 650 mg Q6H PRN Administration Pain Atorvastatin Calcium 40 mg 11/26/19 21:00 12/02/19 21:11 Atorvastatin Calcium 40 Mg Tab PO 40 mg HS KRUPA Administration Insulin Human Lispro 0 units 11/27/19 01:18 11/30/19 21:00 Humalog 300 Units/3 Ml Vial SC 3 unit .BEDTIME SLIDING SC PRN Administration Bedtime Correctional Scale Insulin Human Lispro 0 units 11/27/19 14:45 12/01/19 12:33 Humalog 300 Units/3 Ml Vial SC 2 unit .MODERATE SLIDING SC PRN Administration Moderate Correctional Scale Metformin HCl 850 mg 12/01/19 08:00 12/03/19 09:07 Metformin 850 Mg Tab PO 850 mg BID-WM KRUPA Administration Sodium Chloride 10 ml 11/26/19 14:00 11/29/19 21:06 Flush - Normal Saline 10 Ml Syringe IVF 10 ml PRN PRN Administration Saline Flush - Exam General Appearance: NAD, awake alert Eye: PERRL, anicteric sclera ENT: normocephalic atraumatic, no oropharyngeal lesions Neck: no JVD Heart: RRR, no murmur, no gallops, no rubs Respiratory: CTAB, no wheezes, no rales, no ronchi Gastrointestinal: soft, non-tender, non-distended, normal bowel sounds Extremities: no cyanosis, no clubbing, no edema Skin: normal turgor, no lesions, no rashes Neurological: cranial nerve grossly intact, normal sensation to touch, speech deficit (mild dysarthria) Neurological - other findings: left arm 4/5, right arm 5/5, right leg 5/5, left leg 5/5. Hosp A/P - Plan CT brain 11/25: old infarcts right frontoparietal and right occipital MRI brain 11/25: multifocal bilateral acute infarts with more extensive and numerous in left cerebral hemisphere with new infarcts left frontal lobe, left deep white matter, left parietal lobe and left basal ganglia. Acute cortical infarct right parietal lobe CT head 11/30: new acute infarction in left frontal lobe CTA: mild stenosis of left ICA, Narrowing of right ICA. Chest X ray 12/02: normal This is a 58 year old female who presented with aphasia and left sided facial droop. She has prior history of meth use. SHe had recurrent stroke 11/30 Acute left frontal and right parietal stroke -CT head showed old right frontoparietal and right occipital stroke. MRI brain showed new infarcts left side on 11/25 and acute infarct right parietal lobe and new infarct left frontal lobe - CTA head and neck showed narrowing of right ICA. Discussed with neurosurgery , no intervention and recommended vascular. Vascular consulted today, stated nothing to do - LEON showed no thrombus or PFO . Patient already has loop recorder in place - continue aspirin, statin, plavix Leukocytosis - UA negative. Chest X ray is normal. Will recheck CBC tomorrow Hypertension - continue lisinopril 20 mg daily Diabetes - continue lantus 10 units qam - continue metformin Disposition: d/c tomorrow to jail assuming BP stable
[2019-12-03] MEDS: Atorvastatin Calcium 40 MG TAB PO SCH (21:02)
[2019-12-03] MEDS: Aggrenox 200-25mg CAP PO SCH (21:02)
[2019-12-04 05:12] LABS: Hemoglobin 15.9 g/dL (12.0-16.0); Mean Corpuscular HGB CONC 34.1 g/dL (32.0-36.0); Mean Corpuscular Hemoglobin 32.7 pg (27.0-31.0); Mean Corpuscular Volume 95.7 fL (78.0-98.0); Platelet Count 309 thou/uL (130-400); RBC Distribution Width 11.4 % (11.5-14.5); Red Blood Cell (RBC) Count 4.85 mill/uL (4.20-5.40); White Blood Cell (WBC) Count 15.9 thou/uL (4.8-10.8)
[2019-12-04 05:38] LABS: Anion Gap 15 mmol/L (10-20); BUN (Urea Nitrogen) 18 mg/dL (9.8-20.1); Calc. Creatinine Clearance 62 mL/min (70-130); Calcium 8.9 mg/dL (7.8-10.44); Carbon Dioxide 22 mmol/L (22-29); Chloride 103 mmol/L (98-107); Estimated GFR-MDRD 80; Glucose 109 mg/dL (70-105); Potassium 4.2 mmol/L (3.5-5.1); Sodium 136 mmol/L (136-145)
[2019-12-04] MEDS: metFORMIN 850 MG TAB PO SCH (09:07)
[2019-12-04] MEDS: Acetaminophen 650 MG/20.3 ML UDCUP PO PRN (09:07)
[2019-12-04] MEDS: Aggrenox 200-25mg CAP PO SCH ×2 (09:07→22:51)
[2019-12-04] MEDS: Lisinopril 10 MG TAB PO SCH (09:08)
[2019-12-04] MEDS: metFORMIN 500 MG TAB PO SCH (17:38)
--- NOTE | 2019-12-04 17:47 | PDOC.HOSPP ---
- Subjective Encounter Date: 12/04/19 Encounter Time: 09:00 Subjective: F/u: stroke The patient denies weakness or numbness in arms or legs. Per nursing, patient choked on metformin 850 mg pill but did well with all other pills. She has been denied at nursing homes and family cannot take care of her. - Objective Vital Signs & Weight: Vital Signs (12 hours) Temp Pulse Resp BP BP Pulse Ox 12/04/19 15:55 98 F 70 16 111/57 L 96 12/04/19 11:35 97.6 F 71 16 117/62 97 12/04/19 09:08 133/67 96 12/04/19 07:39 97.8 F 77 16 112/63 96 Weight Admit Weight 107 lb 4.8 oz Weight 107 lb 4.8 oz I&O: 12/03/19 12/04/19 12/05/19 06:59 06:59 06:59 Intake Total 1105 860 900 Balance 1105 860 900 Result Diagrams: 12/04/19 04:41 12/04/19 04:41 Additional Labs: Accuchecks 12/04/19 12/04/19 12/04/19 16:39 10:46 05:39 POC Glucose 76 98 108 H 12/03/19 12/02/19 21:21 23:23 POC Glucose 98 69 L Hospitalist ROS - Review of Systems Constitutional: denies: fever, chills - Medication Medications: Active Medications Generic Name Dose Route Start Last Admin Trade Name Freq PRN Reason Stop Dose Admin Acetaminophen 650 mg 11/28/19 17:10 12/04/19 09:07 Acetaminophen 650 Mg/20.3 Ml Udcup PO 650 mg Q6H PRN Administration Pain Atorvastatin Calcium 40 mg 11/26/19 21:00 12/03/19 21:02 Atorvastatin Calcium 40 Mg Tab PO 40 mg HS KRUPA Administration Dipyridamole/Aspirin 1 cap 12/03/19 21:00 12/04/19 09:07 Aggrenox 200-25mg Cap PO 1 cap BID KRUPA Administration Insulin Human Lispro 0 units 11/27/19 01:18 11/30/19 21:00 Humalog 300 Units/3 Ml Vial SC 3 unit .BEDTIME SLIDING SC PRN Administration Bedtime Correctional Scale Insulin Human Lispro 0 units 11/27/19 14:45 12/01/19 12:33 Humalog 300 Units/3 Ml Vial SC 2 unit .MODERATE SLIDING SC PRN Administration Moderate Correctional Scale Lisinopril 20 mg 12/04/19 09:00 12/04/19 09:08 Lisinopril 10 Mg Tab PO 20 mg DAILY KRUPA Administration Metformin HCl 500 mg 12/04/19 17:00 12/04/19 17:38 Metformin 500 Mg Tab PO 500 mg BID-WM KRUPA Administration Sodium Chloride 10 ml 11/26/19 14:00 11/29/19 21:06 Flush - Normal Saline 10 Ml Syringe IVF 10 ml PRN PRN Administration Saline Flush - Exam General Appearance: NAD, awake alert Eye: PERRL, anicteric sclera ENT: normocephalic atraumatic, no oropharyngeal lesions Neck: no JVD Heart: RRR, no murmur, no gallops, no rubs Respiratory: CTAB, no wheezes, no rales, no ronchi Gastrointestinal: soft, non-tender, non-distended, normal bowel sounds Extremities: no cyanosis, no clubbing, no edema Skin: normal turgor, no lesions, no rashes Neurological - other findings: left arm 4/5 strength, RUE 5/5, RLE 5/5, LLE 5/5 Musculoskeletal: normal tone, normal strength, no muscle wasting Psychiatric: A&O x 3, flat affect Hosp A/P - Plan CT brain 11/25: old infarcts right frontoparietal and right occipital MRI brain 11/25: multifocal bilateral acute infarts with more extensive and numerous in left cerebral hemisphere with new infarcts left frontal lobe, left deep white matter, left parietal lobe and left basal ganglia. Acute cortical infarct right parietal lobe CT head 11/30: new acute infarction in left frontal lobe CTA: mild stenosis of left ICA, Narrowing of right ICA. Chest X ray 12/02: normal This is a 58 year old female who presented with aphasia and left sided facial droop. She has prior history of meth use. SHe had recurrent stroke 11/30 Acute left frontal and right parietal stroke -CT head showed old right frontoparietal and right occipital stroke. MRI brain showed new infarcts left side on 11/25 and acute infarct right parietal lobe and new infarct left frontal lobe - CTA head and neck showed narrowing of right ICA. Discussed with neurosurgery , no intervention and recommended vascular. Vascular consulted stated nothing to do - LEON showed no thrombus or PFO . Patient already has loop recorder in place - continue aspirin, statin, plavix Dysphagia - speech has been following patientbaljinder to have trouble swallowing metformin - metformin dose reduced to 500 mg bid. Leukocytosis - UA negative. Chest X ray is normal. Will recheck CBC tomorrow Hypertension - continue lisinopril 20 mg daily Diabetes - continue lantus 10 units qam - continue metformin. Last HbA1C 12.0 11/2019, patient possibly noncompliant with meds Disposition: pending placement
[2019-12-04 18:55] LABS: Bacteria/HPF None Seen HPF (None Seen); Bilirubin Negative (Negative); Blood, Urine Negative (Negative); Clarity Clear (Clear); Glucose, Urine (Dipstick) Normal (Negative); Ketone, Urine Negative (Negative); Leukocyte Negative Leu/uL (Negative); Nitrite Negative (Negative); Protein, Urine (Dipstick) Negative (Neg-Trace); RBC/HPF 0-3 HPF (0-3); Specific Gravity, Urine 1.009 (1.002-1.036); Squamous Epithelial 0-3 HPF (0-3); Urobilinogen Normal mg/dL (Less than 2); WBC/HPF 0-3 HPF (0-3)
[2019-12-04 18:58] LABS: Urine Culture Reflex No No
[2019-12-04] MEDS: Atorvastatin Calcium 40 MG TAB PO SCH (22:51)
[2019-12-05 04:57] LABS: Hemoglobin 14.2 g/dL (12.0-16.0); Mean Corpuscular HGB CONC 32.2 g/dL (32.0-36.0); Mean Corpuscular Hemoglobin 30.6 pg (27.0-31.0); Mean Corpuscular Volume 95.1 fL (78.0-98.0); Platelet Count 300 thou/uL (130-400); RBC Distribution Width 11.4 % (11.5-14.5); Red Blood Cell (RBC) Count 4.65 mill/uL (4.20-5.40)
[2019-12-05] MEDS: Aggrenox 200-25mg CAP PO SCH ×2 (08:54→21:14)
[2019-12-05] MEDS: metFORMIN 500 MG TAB PO SCH ×2 (08:54→17:12)
[2019-12-05] MEDS: Lisinopril 10 MG TAB PO SCH (08:54)
[2019-12-05] MEDS: HumaLOG 300 UNITS/3 ML VIAL SC PRN (10:36)
--- NOTE | 2019-12-05 15:35 | PDOC.HOSPP ---
- Subjective Encounter Date: 12/05/19 Encounter Time: 10:00 Subjective: The patient has no new complaints. SHe was able to swallow her pills this morning without choking. Denies new numbness or weakness. SHe is waiting on placement still - Objective Vital Signs & Weight: Vital Signs (12 hours) Temp Pulse Resp BP BP Pulse Ox 12/05/19 11:24 97.9 F 62 15 119/62 96 12/05/19 08:54 116/63 12/05/19 07:40 98 12/05/19 07:16 97.6 F 72 14 116/63 98 Weight Admit Weight 107 lb 4.8 oz Weight 107 lb 4.8 oz I&O: 12/04/19 12/05/19 12/06/19 06:59 06:59 06:59 Intake Total 860 1290 600 Output Total 700 200 Balance 860 590 400 Result Diagrams: 12/05/19 04:33 12/04/19 04:41 Additional Labs: Accuchecks 12/05/19 12/05/19 12/04/19 10:33 04:30 21:58 POC Glucose 196 H 84 101 H 12/04/19 16:39 POC Glucose 76 Hospitalist ROS - Review of Systems Constitutional: denies: fever, chills - Medication Medications: Active Medications Generic Name Dose Route Start Last Admin Trade Name Freq PRN Reason Stop Dose Admin Acetaminophen 650 mg 11/28/19 17:10 12/04/19 09:07 Acetaminophen 650 Mg/20.3 Ml Udcup PO 650 mg Q6H PRN Administration Pain Atorvastatin Calcium 40 mg 11/26/19 21:00 12/04/19 22:51 Atorvastatin Calcium 40 Mg Tab PO 40 mg HS KRUPA Administration Dipyridamole/Aspirin 1 cap 12/03/19 21:00 12/05/19 08:54 Aggrenox 200-25mg Cap PO 1 cap BID KRUPA Administration Insulin Human Lispro 0 units 11/27/19 01:18 11/30/19 21:00 Humalog 300 Units/3 Ml Vial SC 3 unit .BEDTIME SLIDING SC PRN Administration Bedtime Correctional Scale Insulin Human Lispro 0 units 11/27/19 14:45 12/05/19 10:36 Humalog 300 Units/3 Ml Vial SC 2 unit .MODERATE SLIDING SC PRN Administration Moderate Correctional Scale Lisinopril 20 mg 12/04/19 09:00 12/05/19 08:54 Lisinopril 10 Mg Tab PO 20 mg DAILY KRUPA Administration Metformin HCl 500 mg 12/04/19 17:00 12/05/19 08:54 Metformin 500 Mg Tab PO 500 mg BID-WM KRUPA Administration Sodium Chloride 10 ml 11/26/19 14:00 11/29/19 21:06 Flush - Normal Saline 10 Ml Syringe IVF 10 ml PRN PRN Administration Saline Flush - Exam General Appearance: NAD, awake alert Eye: PERRL, anicteric sclera ENT: normocephalic atraumatic, no oropharyngeal lesions Neck: no JVD Heart: RRR, no murmur, no gallops, no rubs Respiratory: CTAB, no wheezes, no rales, no ronchi, normal percussion Gastrointestinal: soft, non-tender, non-distended, normal bowel sounds Extremities: no cyanosis, no clubbing, no edema Skin: normal turgor, no lesions, no rashes Neurological: cranial nerve grossly intact, normal sensation to touch, no focal deficits, no new deficit Musculoskeletal: normal tone, normal strength, no muscle wasting Psychiatric: normal affect, normal behavior, A&O x 3, oriented to person Hosp A/P - Plan CT brain 11/25: old infarcts right frontoparietal and right occipital MRI brain 11/25: multifocal bilateral acute infarts with more extensive and numerous in left cerebral hemisphere with new infarcts left frontal lobe, left deep white matter, left parietal lobe and left basal ganglia. Acute cortical infarct right parietal lobe CT head 11/30: new acute infarction in left frontal lobe CTA: mild stenosis of left ICA, Narrowing of right ICA. Chest X ray 12/02: normal This is a 58 year old female who presented with aphasia and left sided facial droop. She has prior history of meth use. SHe had recurrent stroke 11/30 Acute left frontal and right parietal stroke -CT head showed old right frontoparietal and right occipital stroke. MRI brain showed new infarcts left side on 11/25 and acute infarct right parietal lobe and new infarct left frontal lobe - CTA head and neck showed narrowing of right ICA. Discussed with neurosurgery , no intervention and recommended vascular. Vascular consulted stated nothing to do - LEON showed no thrombus or PFO . Patient already has loop recorder in place - continue aspirin, statin, plavix Dysphagia - speech has been following patient, had trouble swallowing metformin - continue metformin 500 mg bid Leukocytosis - resolving. WBC down to 13. Repeat UA negative. Chest Xray normal - will recheck WBC tomorrow Hypertension - continue lisinopril 20 mg daily Diabetes - continue lantus 10 units qam - continue metformin. Last HbA1C 12.0 11/2019, patient possibly noncompliant with meds Disposition: pending placement
[2019-12-05] MEDS: Atorvastatin Calcium 40 MG TAB PO SCH (21:14)
[2019-12-06 05:02] LABS: White Blood Cell (WBC) Count 11.9 thou/uL (4.8-10.8)
[2019-12-06] MEDS: Aggrenox 200-25mg CAP PO SCH (09:11)
[2019-12-06] MEDS: Lisinopril 10 MG TAB PO SCH (09:11)
[2019-12-06] MEDS: metFORMIN 500 MG TAB PO SCH ×2 (09:11→18:58)
[2019-12-06] MEDS: Acetaminophen 650 MG/20.3 ML UDCUP PO PRN (09:13)
[2019-12-06] MEDS: HumaLOG 300 UNITS/3 ML VIAL SC PRN (11:01)
[2019-12-06 15:50] VITALS: BP 113/64; TEMP 98.1
--- NOTE | 2019-12-06 17:31 | CT ---
CT OF BRAIN PERFORMED WITHOUT CONTRAST ENHANCEMENT: 12/06/19 HISTORY: Worsening slurred speech. COMPARISON: 12/01/19 study. Ventricular and cisternal system shows mild atrophy. Old infarcts in the right frontal and occipital regions with associated encephalomalacia change are again noted. No hemorrhage or mass effect. Questi on was raised of a possible small infarct in the left frontal lobe on the previous exam. Subtle chávez es are seen in this area not definitely changed in appearance. IMPRESSION: Stable overall appearance. No areas of any obvious new infarct or evidence for hemorrhage. POS: KELSEY
--- NOTE | 2019-12-06 21:23 | DIS ---
DATE OF ADMISSION: 11/26/2019 DATE OF DISCHARGE: 12/06/2019 DISCHARGE DIAGNOSES: 1. Acute left frontal and right parietal stroke. 2. Dysphagia. 3. Leukocytosis. 4. Hypertension. 5. Diabetes. CONSULTATIONS: Neurology with Dr. Tamica Zambrano. PROCEDURES: EEG on 11/26 and LEON on 11/28. BRIEF HISTORY OF PRESENT ILLNESS: This is a 58-year-old female with a past medical history of hypertension, diabetes, hyperlipidemia with residual left-sided weakness, who presented to the emergency room when they found her unable to speak and left-sided facial droop. The patient has history of meth use and has had two strokes in the past year. When she presented to the emergency room, her CT scan of her brain showed a right frontoparietal and right occipital old infarct. She was not a candidate for TPA. CTA showed narrowing of the right ICA. Neurosurgery recommended no intervention. The patient was admitted for further workup. HOSPITAL COURSE: Acute left frontal and right parietal stroke:. Neurology was consulted. MRI of the brain 11/25 showed a new infarct in the left frontal lobe, left deep white matter, left parietal lobe, and left basal ganglia. There was also acute cortical infarct in the right parietal lobe. The patient was on aspirin, Plavix, and Lipitor. On 11/30, when the patient was ambulating, she was having difficulty speaking. A repeat CT scan of her head showed a new acute infarction in the left frontal lobe. The patient's medications were switched to Aggrenox since she was on aspirin and plavix at home. The patient underwent a LEON, which showed no evidence of a thrombus. She does already have a LINQ recorder in place, which Dr. Ball follows. Anticoagulation was not recommended due to fall risk, history of prior strokes which would make her more prone to bleeding. On 12/05 patient's daughter noticed that her writing looked different and her speech sounded more slurred. She was noted to have a hoarse voice. Repeat CT head showed no new changes. Vitals were stable. After discussion with neurology, no additional changes to medications were recommended. Nursing re-evaluated her swallowing function which was intact. The patient was seen by Physical Therapy, who recommended to SNF. After discussion with family, she will be discharged to a retirement. Dysphagia: The patient had some trouble swallowing her metformin 850 mg tablet. This was reduced to 500 mg. The patient is tolerating a soft diet. Leukocytosis: The patient had a white count of 12.5, which peaked at 15.9 and downtrended to 11.9. Her UA was unremarkable. Chest x-ray was negative. Consider repeat CBC in a week to evaluate for resolution of leukocytosis. Diabetes: The patient was continued on her Lantus and metformin, but her metformin was reduced to 500 mg b.i.d. since she was unable to swallow the tablet, even when it was crushed. Her HbA1c was 12.0, but blood sugars in the hospital were controlled at 102 to 112. Further additional medications can be added by her primary doctor as an outpatient. My suspicion is that she was noncompliant. DISCHARGE PHYSICAL EXAMINATION: VITAL SIGNS: Temperature 98.1, heart rate 61, respiratory rate 16, O2 saturation 98% on room air, and blood pressure 113/64. GENERAL: The patient is awake and oriented x3. NEUROLOGIC: The patient has mild dysarthria and slurred speech with a hoarse voice. She has 4/5 strength in her left upper extremity. 5/5 strength in her right upper extremity, right lower extremity, left lower extremity. She has normal sensation in all 4 extremities. CVS: Regular rate and rhythm with no murmurs, rubs, or gallops. LUNGS: Clear to auscultation bilaterally. ABDOMEN: Positive bowel sounds, soft, nontender, nondistended. EXTREMITIES: No edema. PERTINENT LABORATORY DATA: CBC 12/04: White count 13.0, hemoglobin 14.4, hematocrit 44.2, and platelet count 300. White count 12/05: 11.9. BMP 12/03: Normal. UA 12/03: Negative. U tox 11/25: Negative. NICKO screen 11/25: Negative. Syphilis 11/25: Negative. COVID PCR 11/25: Negative. HbA1C 11/25/: 12.0 IMAGING: CT brain 11/25: Old infarcts in the right frontoparietal and right occipital region. CTA head and neck: Pronounced narrowing of the right internal carotid artery 2 cm beyond its origin. Mild stenosis of the supraclinoid portion of the left ICA. Brain MRI 11/25: Multifocal bilateral acute infarcts. They are more extensive and numerous in the left cerebral hemisphere with new infarcts in the left frontal lobe, left deep white matter, left parietal lobe, and left basal ganglia. There is acute cortical infarct in the right parietal lobe. CT brain 11/30: New infarction in left frontal lobe since 11/25. Chest x-ray 12/02: No abnormalities. CT brain 12/05: Negative. EEG 11/26: Intermittent irregular theta activity. Mild to moderate generalized nonspecific cerebral dysfunction. LEON 11/28: No PFO. No thrombus. Mild TR. DISCHARGE CONDITION: Stable to SNF. DIET: Diabetic and heart healthy diet ACTIVITY: as tolerated DISCHARGE MEDICATIONS: 1. Aggrenox 1 capsule p.o. b.i.d. 2. Metformin 500 mg p.o. b.i.d. 3. Atorvastatin 40 mg p.o. q.h.s. 4. Lisinopril 20 mg p.o. daily. 5. Glipizide 5 mg p.o. daily. DISCHARGE INSTRUCTIONS: The patient to follow up with her PCP in a week. Consider following up with a neurologist in a month and repeating a CBC in a week to evaluate for resolution of leukocytosis. Job ID: [id number] [facility]
--- NOTE | 2019-12-09 14:04 | EKG ---
Test Reason : STROKE Blood Pressure : / mmHG Vent. Rate : 062 BPM Atrial Rate : 062 BPM P-R Int : 156 ms QRS Dur : 084 ms QT Int : 440 ms P-R-T Axes : 022 -09 036 degrees QTc Int : 446 ms Normal sinus rhythm Normal ECG Confirmed by DONNIE ANDERSON ([id number]), general expeditor LUCIAN BRICE ([id number]) on 12/09/2019 2:04:18 PM Referred By: MUSTAPHA Confirmed By:DONNIE Garcia
== END 2019-12-06 18:01 | DRG 65 ==
LOC: ERS 11:24 → 2SE 12:46
PROVIDERS: ADMIT Internal Medicine; ATTEND Internal Medicine
PROC: B24BZZ4 Ultrasonography of Heart with Aorta, Transesophageal (ICD-10-PCS; principal; 2019-11-28)
DX: I63.9 Cerebral infarction, unspecified (principal); G81.94 Hemiplegia, unspecified affecting left nondominant side; R47.01 Aphasia; E78.00 Pure hypercholesterolemia, unspecified; Z51.5 Encounter for palliative care; Z66 Do not resuscitate; E11.649 Type 2 diabetes mellitus with hypoglycemia without coma; D72.829 Elevated white blood cell count, unspecified; R13.10 Dysphagia, unspecified; F19.10 Other psychoactive substance abuse, uncomplicated; R29.810 Facial weakness; R29.713 NIHSS score 13; I10 Essential (primary) hypertension; F17.210 Nicotine dependence, cigarettes, uncomplicated; Z90.710 Acquired absence of both cervix and uterus; Z79.82 Long term (current) use of aspirin; Z79.899 Other long term (current) drug therapy; Z79.01 Long term (current) use of anticoagulants; Z20.828 Contact with and (suspected) exposure to other viral communicable diseases
CPT/HCPCS: 36415; 36416; 51701; 70450; 70496; 70498; 70551; 71045; 80048; 80053; 80061; 80306; 81001; 81003; 81015; 83036; 83090; 84484; 85025; 85027; 85048; 85610; 85652; 85730; 86038; 86225; 86780; 87077; 87086; 87186; 87324; 87449; 87635; 93005; 93312; 94760; 95712; 95816; 95819; 96365; J0696; J1650; J1815; J2704; Q9967; U0003

== ENCOUNTER 2022-09-24 09:39 | Emergency (ER) | payer MEDICARE, MEDICAID ==
[2022-09-24] MEDS ORDERED: cefTRIAXone (ROCEPHIN) 2 GM VIAL ONE (10:29)
[2022-09-24 10:51] LABS: #Basophils 0.1 thou/uL (0.0-0.2); #Monocytes 1.9 thou/uL (0.11-0.59); #Neutrophils 15.2 thou/uL (1.40-6.50); %Basophils 0.3 % (0.0-1.0); %Eosinophils 0.1 % (0.0-10.0); %Lymphocytes 9.4 % (21.0-51.0); %Neutrophils 79.5 % (42.0-75.0); Hemoglobin 10.2 g/dL (12.0-16.0); Mean Corpuscular HGB CONC 30.9 g/dL (32.0-36.0); Mean Corpuscular Hemoglobin 28.9 pg (27.0-31.0); Mean Corpuscular Volume 93.5 fl (78.0-98.0); Mean Platelet Volume 8.9 fL (7.4-10.4); Platelet Count 336 10x3/uL (130-400); RBC Distribution Width 15.1 % (11.5-14.5); Red Blood Cell (RBC) Count 3.53 mill/uL (4.20-5.40); White Blood Cell (WBC) Count 19.1 10x3/uL (4.8-10.8)
[2022-09-24] MEDS ORDERED: Vancomycin 1 GM/200 ML (FROZEN) BAG ONE (11:12)
[2022-09-24 11:22] LABS: ALT (SGPT) 12 U/L (8-55); AST (SGOT) 28 U/L (5-34); Albumin 3.3 g/dL (3.4-4.8); Alkaline Phosphatase 111 U/L (40-110); Anion Gap 14 mmol/L (10-20); BUN (Urea Nitrogen) 14 mg/dL (9.8-20.1); Bilirubin, Total 0.4 mg/dL (0.2-1.2); Calc. Creatinine Clearance 0 mL/min (70-130); Calcium 8.7 mg/dL (7.8-10.44); Carbon Dioxide 25 mmol/L (23-31); Chloride 103 mmol/L (98-107); Estimated GFR 98; Globulin 3.7 g/dL (2.4-3.5); Glucose 116 mg/dL (80-115); Sodium 138 mmol/L (136-145)
[2022-09-24] MEDS ORDERED: Morphine 4 MG/ML VIAL ONE (13:47)
[2022-09-24] MEDS ORDERED: Iopamidol-370 76% 500 ML MDV (1 ML CHARGE) ONE (13:55)
== END 2022-09-24 15:47 | disposition short-term general hospital (02) ==
LOC: ERS 09:39
DX: T81.49XA Infection following a procedure, other surgical site, initial encounter (principal); E11.9 Type 2 diabetes mellitus without complications; E78.00 Pure hypercholesterolemia, unspecified; Z79.4 Long term (current) use of insulin; Z79.899 Other long term (current) drug therapy
CPT/HCPCS: 36415; 80053; 83605; 85025; 87040; 87077; 87149; 87186; 96365; 96367; 96375; J0696; J2270; J3370-JW; Q9967